=== PATIENT | female | born 1970 | race Caucasian/White ===

== ENCOUNTER 2019-02-19 09:58 | Day surgery (SDC) | payer BC ==
[2019-02-18 11:55] VITALS: BMI 20.4
[~2019-02-19 09:58] MED LIST: ALBUTEROL NEB (CONC) 2.5 MG/0.5 ML INHALATION ONE; LIDOCAINE 2% (PF) 20 MG/ML 10 ML AMP INHALATION ONE; LIDOCAINE VISCOUS 300 MG/15 ML CUP MUCOUS MEM ONE; SODIUM CHLORIDE 0.9% 1,000 ML IV SCH
[2019-02-19] MEDS ORDERED: LACTATED RINGERS 1,000 ML IV ONE (10:25)
[2019-02-19] MEDS: fentaNYL (PF) 50 MCG/ML 2 ML AMP IVP ONE ×2 (11:23→11:34)
[2019-02-19] MEDS ORDERED: MIDAZOLAM 2 MG/2 ML VIAL IVP ONE ×2 (12:25→12:37)
[2019-02-19] MEDS ORDERED: MIDAZOLAM 2 MG/2 ML VIAL ONE (12:38)
[2019-02-19] MEDS ORDERED: fentaNYL (PF) 50 MCG/ML 2 ML AMP ONE (12:38)
[2019-02-19] MEDS ORDERED: SUCCINYLCHOLINE CHLORIDE 100 MG/5 ML SYR IV ONE (12:38)
[2019-02-19] MEDS ORDERED: PROPOFOL 10 MG/ML 20 ML VIAL IV ONE (12:38)
[2019-02-19] MEDS ORDERED: LIDOCAINE 1% INJ 10MG/ML (20 ML MDV) ONE (12:38)
[2019-02-19] MEDS ORDERED: ONDANSETRON 4 MG/2 ML VIAL ONE (12:38)
[2019-02-19] MEDS ORDERED: DEXAMETHASONE SOD PHOS (MDV) 100 MG/10 ML VIAL ONE (12:38)
[2019-02-19 13:48] VITALS: RESP 16; TEMP 97
--- NOTE | 2019-02-19 14:38 | XR ---
EXAMINATION TYPE: XR chest 1V portable DATE OF EXAM: 02/19/2019 COMPARISON: CT chest same date HISTORY: Status post bronchoscopy with biopsies TECHNIQUE: Single frontal view of the chest is obtained. FINDINGS: There is no evident pneumothorax or sizable effusion. Patchy increased density present in the right upper lobe is noted, bilateral apical irregularity, nodularity is present. IMPRESSION: No evident complication status post bronchoscopy.
[2019-02-19 15:09] VITALS: BP 127/79; PULSE 106
--- NOTE | 2019-02-19 15:30 | CT ---
EXAMINATION TYPE: CT Chest miguel Ordoñez Protocol DATE OF EXAM: 02/19/2019 COMPARISON: None HISTORY: Presurgical navigational bronchoscopy CT DLP: 597 mGycm Automated exposure control for dose reduction was used. FINDINGS: Axial images were obtained at 5 mm thick sections for computer navigation. There is a spiculated mass at the left apex measuring 1.0 x 1.6 cm in size. There is an area of a bul la adjacent to a small nodule measuring 0.7 cm transverse. Series 6 image 19. There is a spiculated m ass in the posterior medial right upper lobe measuring 1.9 x 1.3 cm. Series 6 image 22. Some punctate increased densities in the posterior lateral right upper lobe extending to the periphery could be so me scarring or metastatic disease. The ascending thoracic aorta at the level the main pulmonary artery is 3.0 cm patent main pulmonary b ifurcation is 2.2 cm. Coronary artery calcification is present. Limited CT sections are obtained through the upper abdomen which are unremarkable. IMPRESSION: CT FOR COMPUTER GUIDANCE. 2. BILATERAL UPPER LUNG FIELD SPICULATED MASSES ARE PRESENT DELINEATED ABOVE. SOME ADDITIONAL SMALLER PUNCTATE DENSITIES ARE PRESENT.
--- NOTE | 2019-02-19 17:25 | P.PCN ---
Date of Procedure: 02/19/19 Preoperative Diagnosis: bilateral upper lobe masses,consider lung cancer Postoperative Diagnosis: bilateral upper lobe mass, consider lung cancer Procedure(s) Performed: medications bronchoscopy, right upper lobe transbronchial biopsy, right upper lobe bronchoalveolar lavage Anesthesia: ANITHAA Surgeon: Mirella Najera Estimated Blood Loss (ml): 0 Pathology: other Condition: stable Disposition: same day Operative Findings: This is a 48-year-old female patient was referred to us for lung mass. The patient had a CAT scan of the chest and the patient was found to have a 1.9 x 1.3 cm right upper lobe mass and metastatic 8 the lesion the left apex measuring 1 x 1.6 cm in size. For that reason, the patient was brought into the hospital to undergo navigational bronchoscopy for tissue diagnosis. This procedure was done and operating room. A consent was signed. A timeout was obtained. A CAT scan of the chest was obtained for mapping the lung masses. Appropriate VPADS was applied to the patient's chest. Following that the patient was brought into the operating room and with the help of anesthesia the patient was intubated and placed on a mechanical ventilator. The procedure was done under general anesthesia. The patient was intubated by a #8 orotracheal tube by anesthesia. The preoperative CAT scan of the chest was reviewed. Appropriate mapping was done and the target lesions in the right upper lobe and the left upper lobe were mapped and all of these information was transported to a USB following that uploaded into the [employer] system. While the patient being adequately oxygenated and ventilated, and had after was attached and orotracheal tube and the flexible bronchoscope was easily passed down the ET tube into the lower trachea. The sabrina was identified. A quick airway inspection was done and the visualized airways included bilateral mainstem bronchi, right upper lobe bronchus, bronchus intermedius, right middle lobe bronchus, right lower lobe bronchus, left upper lobe bronchus, left lower lobe bronchus and its various segments and subsegments. All of these airways were patent and within normal limits. Following that, appropriate calibration was done using to reference points and these included the main sabrina and the secondary sabrina and the right upper lobe. Following that, using navigational guidance, the bronchoscope was moved to the posterior segment of the right upper lobe and transbronchial biopsies of the right upper lobe lesion was done. Multiple biopsies were obtained. A lavage of the right upper lobe was also done where total of 80 mL of fluid was infused and 20 mL's was suctioned back. I also attempted to biopsy the left upper lobe lesion on the navigational guidance. This was not possible as the apical lesion on the left was not accessible through any of the airways in the apical posterior segment in the left upper lobe. After completing the procedure, the bronchoscope was removed. The ET tube was removed and the patient was extubated and the patient was transferred to recovery in stable condition. No bedside complications. The patient remains hemodynamically stable throughout the procedure. Chest x-rays to follow. The patient will be discharged once cleared by anesthesia to be followed up with us in the office.
[2019-02-19 20:25] LABS: Appearance,BF Bloody; RBC, Body Fluid 7540 /uL
[2019-02-19 20:26] LABS: Nucleated Cells, Body Fluid 78 /uL
[2019-02-19 20:29] LABS: Mononuclear WBC,Body Fluid 90 %; Polynuclear WBC,Body Fluid 10 %; Total Cells Counted,Body Fluid 100
== END 2019-02-19 15:15 | disposition home or self-care (01) ==
LOC: ORWHC2ENDO 09:58
PROVIDERS: ATTEND Internal Medicine Critical Care Medicine
DX: J98.4 Other disorders of lung (principal); L40.9 Psoriasis, unspecified; L40.50 Arthropathic psoriasis, unspecified; K21.9 Gastro-esophageal reflux disease without esophagitis; G89.29 Other chronic pain; M89.9 Disorder of bone, unspecified; I10 Essential (primary) hypertension; F41.9 Anxiety disorder, unspecified; E03.9 Hypothyroidism, unspecified; F17.210 Nicotine dependence, cigarettes, uncomplicated; Z79.1 Long term (current) use of non-steroidal anti-inflammatories (NSAID); Z79.899 Other long term (current) drug therapy
CPT/HCPCS: 88108; 88305; 89050; 88342; 88341; 87070; 87205; 71045; 71250; 31628; 31624; 31627; J2250; J2405; J2001; J3010; J1100; J0330; J2704; 31625

== ENCOUNTER → 2019-02-26 | Outpatient (CLI) | payer BC ==
--- NOTE | 2019-03-01 06:00 | PE ---
EXAMINATION TYPE: PET CT fusion skull to thigh DATE OF EXAM: 02/26/2019 COMPARISON: Outside chest CT February 11, 2019 HISTORY: Solitary pulmonary nodule, biopsy-proven cancer February 19, 2019 by bronchoscopy TECHNIQUE: Following the intravenous administration of 14.591 mCi of F-18 FDG, whole body images are performed from the skull base to the midthigh. Images are reviewed on the computer in the coronal, axial, and sagittal planes. Reconstructed rotating images are created on independent workstation and reviewed on the computer. A noncontrast CT is performed in conjunction with the PET scan. SCAN: Initial Scan FINDINGS: SKULL BASE AND NECK: No areas of suspicious hypermetabolic uptake. CHEST, MEDIASTINUM, AND HILAR REGION: There is spiculated left apical nodule redemonstrated measuring 1.5 x 1.3 cm axial image 59, max SUV is 3.18. There is some linear and thickened scarring in the right upper lobe on background chronic emphysemato us change, just below there is posterior nodularity measuring 1.6 x 1.5 cm axial image 76, max SUV i s 4.12. No additional areas of abnormal hypermetabolic uptake are seen. No suspicious adenopathy is noted. ABDOMEN AND PELVIS: No suspicious hypermetabolic uptake. No adrenal masses are present. OSSEOUS STRUCTURES: There is hypermetabolic destructive lesion involving the T9 vertebra with adjacen t soft tissue mass near axial image 103 with additional involvement in the T10 vertebra and inferior T8 endplate, max SUV at this level is 9.52. There is hypermetabolic lytic osseous lesion left L1 lamina, axial image 138, max SUV is 3.24. There is hypermetabolic sclerotic focus left sacrum axial image 192, max SUV is 4.86. OTHER CT: There is moderate to severe 3 vessel coronary artery calcification and/or stents, correlate clinically. Liver is diffusely low dense relative to spleen consistent with diffuse fatty infiltration. There is moderate calcified plaque of aorta extending into pelvic branch vessels. There is low lying fecal filled cecum into right pelvis. IMPRESSION: Bilateral suspicious upper lung pulmonary nodules with osseous metastatic disease as deta iled above.
== END | disposition home or self-care (01) ==
LOC: RADPETMAIN 16:01
PROVIDERS: ATTEND Internal Medicine
DX: R91.8 Other nonspecific abnormal finding of lung field (principal)
CPT/HCPCS: 78815; A9552

== ENCOUNTER → 2019-03-03 | Outpatient (CLI) | payer BC ==
--- NOTE | 2019-03-03 11:07 | MR ---
EXAMINATION TYPE: MR brain wo/w con DATE OF EXAM: 03/03/2019 COMPARISON: NONE HISTORY: Suspected lung cancer, initial staging study, rule out metastatic disease. Recent abnormal P ET/CT. TECHNIQUE: Multiplanar, multisequence images of the brain and brainstem is performed without and with IV contras t, utilizing 5.5 mL intravenous Gadavist . FINDINGS: Diffusion weighted images demonstrate no evidence of a recent infarct or other diffusion ab normality. There is no worrisome extra-axial fluid collection. There is mild ventricular and sulcal prominence. There are few scattered foci T2 hyperintensity throughout the white matter bilaterally, f or reference 4-5 small lesions are seen bilateral parietal occipital region axial image 35. Lesions a re nonspecific in appearance and distribution. Midline structures demonstrate normal morphology. The craniocervical junction appears within normal limits. Post contrast images demonstrate no abnormal enhancement. The dural venous sinuses appear pa tent. The visualized sinuses are clear and the globes are intact. IMPRESSION: No enhancing lesions identified to suggest metastatic disease to the brain. Background mi ld age-related diffuse cerebral atrophy and mild chronic small vessel ischemic change felt present.
== END | disposition home or self-care (01) ==
LOC: RADMRIMAIN 10:02
PROVIDERS: ATTEND Radiology Radiation Oncology
DX: G31.1 Senile degeneration of brain, not elsewhere classified (principal); I67.82 Cerebral ischemia; C34.12 Malignant neoplasm of upper lobe, left bronchus or lung
CPT/HCPCS: 70553; A9585

== ENCOUNTER 2019-03-10 10:54 | Day surgery (SDC) | payer BC ==
[2019-03-10] MEDS ORDERED: ALPRAZolam 0.5 MG TAB PO STA (11:15)
[2019-03-10 11:31] LABS: Mean Platelet Volume 7.3; Platelet Count 277 k/uL (150-450)
[2019-03-10 11:41] VITALS: TEMP 98
[2019-03-10 11:46] LABS: INR 0.9 (<1.2); Prothrombin Time 9.5 sec (9.0-12.0)
[2019-03-10] MEDS: HYDROmorphone 0.5 MG/0.5 ML SYRINGE IVP STA ×2 (12:01→12:12)
--- NOTE | 2019-03-10 12:51 | XR ---
EXAMINATION TYPE: XR chest 1V DATE OF EXAM: 03/10/2019 COMPARISON: Prior chest x-ray 02/19/2018 HISTORY: Status post thoracic biopsy, paraspinal mass TECHNIQUE: Single frontal view of the chest is obtained. FINDINGS: There is no pleural effusion or pneumothorax seen. Upper lobe airspace disease has improve d in the interval. The cardiac silhouette size is within normal limits. The osseous structures are intact, there is a spinal curvature. Patient's paraspinal mass is noted incidentally. IMPRESSION: No evident complication status post biopsy
--- NOTE | 2019-03-10 13:10 | CT ---
EXAMINATION TYPE: CT biopsy st back/flank [facility] fine-needle aspiration paraspinal mass DATE OF EXAM: 03/10/2019 HISTORY: Abnormal PET/CT, lytic bone lesions, paraspinal mass COMPARISON: CT 02/19/2018, MRI 02/11/2019, PET/CT 02/26/2019 Maximal barrier technique was utilized. The skin overlying a suitable path to the paraspinal lesion at approximately T10 was localized using CT and the overlying skin was prepped and draped. Lidocaine used for local anesthesia. A skin terrance made with a scalpel. Using CT guidance, access was gained t o the lesion with a 22-gauge needle coaxially through a 19-gauge guide. Aspirated specimen submitted to cytology. 3 passes were performed in all. Following the procedure no immediate complications. The patient is discharged in stable condition. Hemostasis achieved. IMPRESSION: SUCCESSFUL CT GUIDED BIOPSY of paraspinal mass as described. PATHOLOGY PENDING. THIS PROCEDURE WAS PERFORMED BY THE UNDERSIGNED.
[2019-03-10 13:29] VITALS: RESP 16
[2019-03-10 13:30] VITALS: BP 131/69; PULSE 94
== END 2019-03-10 13:15 | disposition home or self-care (01) ==
LOC: RADPROMAIN 10:54
PROVIDERS: ATTEND Internal Medicine
DX: C79.51 Secondary malignant neoplasm of bone (principal); K21.9 Gastro-esophageal reflux disease without esophagitis; R91.8 Other nonspecific abnormal finding of lung field; L40.50 Arthropathic psoriasis, unspecified; F41.9 Anxiety disorder, unspecified; G89.29 Other chronic pain; M54.9 Dorsalgia, unspecified; F17.210 Nicotine dependence, cigarettes, uncomplicated; Z79.1 Long term (current) use of non-steroidal anti-inflammatories (NSAID); Z79.899 Other long term (current) drug therapy
CPT/HCPCS: 88305; 88173; 85049; 85610; 88342; 88341; 36415; 71045; 10009; J1170; 21920; 77012

== ENCOUNTER 2019-04-14 17:43 | Inpatient (IN) | payer BC ==
[2019-04-14] MEDS ORDERED: SODIUM CHLORIDE 0.9% 1,000 ML IV STA (20:33)
[2019-04-14] MEDS ORDERED: MORPHINE SULFATE 4 MG/ML SYRINGE IV STA (20:33)
[2019-04-14] MEDS ORDERED: ONDANSETRON 4 MG/2 ML VIAL IVP STA (20:33)
--- NOTE | 2019-04-14 20:36 | ED ---
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 Patient has been nauseous and vomiting for the past day. States she has difficulty swallowing due to radiation to her back and has not b een eating much at home. States she has also had diarrhea for the past day. States she saw [employer] Aretha yesterday and was given fluids. States that she was called today and told she needs more fluids and her potassium is low so to come to ED. Denies any abdominal pain with this. Denies any fevers at home. Last received chemo one week ago. Patient has no other complaints at this time including shortness of breath, chest pain, abdominal pain, headache, or visual changes. (Milton Watkins) - Related Data Home Medications Medication Instructions Recorded Confirmed ALPRAZolam [Xanax] 0.25 mg PO DAILY PRN 02/18/19 04/14/19 Diltiazem HCl [Diltiazem 24Hr ER] 180 mg PO DAILY 02/18/19 04/14/19 Ibuprofen [Motrin] 800 mg PO TID PRN 02/18/19 04/14/19 Levothyroxine Sodium [Synthroid] 50 mcg PO DAILY 02/18/19 04/14/19 HYDROcodone/APAP 7.5-325MG [[place] 1 tab PO Q6H 03/02/19 04/14/19 7.5-325] Calcium Carbonate/Vitamin D3 2 tab PO DAILY 04/14/19 04/14/19 [Calcium 600-Vit D3 200 Tablet] Folic Acid 1 mg PO DAILY 04/14/19 04/14/19 fentaNYL 25MCG/HR PATCH [Duragesic 1 patch TRANSDERM Q72H 04/14/19 04/14/19 25MCG/HR] valACYclovir HCL [Valacyclovir] 1,000 mg PO Q12HR 04/14/19 04/14/19 Allergies Allergy/AdvReac Type Severity Reaction Status Date / Time No Known Allergies Allergy Verified 04/14/19 20:28 Review of Systems ROS Other: All systems not noted in ROS Statement are negative. <Milton Watkins - Last Filed: 04/14/19 23:36> ROS Other: All systems not noted in ROS Statement are negative. <Jcarlos Zaman - Last Filed: 04/15/19 06:52> ROS Statement: Those systems with pertinent positive or pertinent negative responses have been documented in the HPI. Past Medical History Past Medical History: Cancer Additional Past Medical History / Comment(s): adeno carcinoma, lung nodules, back pain, psoriatic arthritis History of Any Multi-Drug Resistant Organisms: None Reported Additional Past Surgical History / Comment(s): colonoscopy, ganglion cyst removed, bone marrow bx. Past Anesthesia/Blood Transfusion Reactions: No Reported Reaction Past Psychological History: Anxiety Smoking Status: Current every day smoker Past Alcohol Use History: None Reported Past Drug Use History: None Reported - Past Family History Mother Family Medical History: No Reported History <Milton Watkins P - Last Filed: 04/14/19 23:36> General Exam Limitations: no limitations General appearance: alert, in no apparent distress Head exam: Present: atraumatic, normocephalic, normal inspection Eye exam: Present: normal appearance, PERRL, EOMI. Absent: scleral icterus, conjunctival injection, periorbital swelling ENT exam: Present: normal exam, mucous membranes moist Neck exam: Present: normal inspection, full ROM. Absent: tenderness, meningismus, lymphadenopathy Respiratory exam: Present: normal lung sounds bilaterally. Absent: respiratory distress, wheezes, rales, rhonchi, stridor Cardiovascular Exam: Present: regular rate, normal rhythm, normal heart sounds. Absent: systolic murmur, diastolic murmur, rubs, gallop, clicks GI/Abdominal exam: Present: soft, normal bowel sounds. Absent: distended, tenderness, guarding, rebound, rigid Neurological exam: Present: alert, oriented X3, CN II-XII intact Psychiatric exam: Present: normal affect, normal mood <Milton Watkins P - Last Filed: 04/14/19 23:36> Course Vital Signs 04/14/19 04/14/19 04/14/19 18:03 21:30 22:10 Temperature 96.7 F L Pulse Rate 122 H Respiratory 18 Rate Blood Pressure 101/70 81/59 91/54 O2 Sat by Pulse 100 98 100 Oximetry 04/14/19 04/14/19 04/15/19 23:00 23:38 01:00 Temperature Pulse Rate 98 104 H 705 H Respiratory 16 Rate Blood Pressure 95/51 106/64 O2 Sat by Pulse 96 Oximetry 04/15/19 04/15/19 04/15/19 01:48 02:17 04:47 Temperature Pulse Rate 100 98 102 H Respiratory 18 16 18 Rate Blood Pressure 107/59 96/54 98/61 O2 Sat by Pulse 96 98 96 Oximetry EKG Findings - EKG Comments: EKG Findings:: NSR, ventricular rate 96, CA interval 178, QT prolongation with a QTC of 533. <Milton Watkins - Last Filed: 04/14/19 23:36> Medical Decision Making - Lab Data Result diagrams: 04/14/19 20:51 04/14/19 20:51 - EKG Data -: EKG Interpreted by Ak (and Dr Zaman) <Milton Watkins - Last Filed: 04/14/19 23:36> - Lab Data Result diagrams: 04/14/19 20:51 04/14/19 20:51 <Jcarlos Zaman - Last Filed: 04/15/19 06:52> - Medical Decision Making 49-year-old female with a primary adenocarcinoma of the lung with metastases to the bone presents for possible dehydration. Patient states that she has had nausea vomiting and diarrhea for one day. States that she has not been able to eat or drink much at home because she has difficulty swallowing due to radiation to her spine. On exam patient is well-appearing. Patient initially tachycardic with a pulse rate of 122 and a stable blood pressure of 101/70. Afebrile. CMP did reveal a potassium of 2.8 with a magnesium of 1.7. EKG did show evidence of prolonged QT which likely is secondary to hypokalemia. Patient started on IV potassium replacement as well as 2 g of magnesium. Phos Pending. No additional zofran will be ordered. Patient is neutropenic with a white blood cell count of 1. I do not have any previously blood cell counts and patient states that she is unsure of what they have been in the past but no they have been low. Patient did start him somewhat hypotensive around 90/50 after receiving a liter of fluids. Possibly secondary to morphine administration as well. She was then given another liter of fluids as well as ordering a lactic acid, blood cultures, and started on Zosyn due to concern for possible infection. Chest x-ray is negative. Urinalysis is pending, patient has tried to give a sample several times. At this time patient will be admitted for potassium replacement and monitoring of QT prolongation as well as neutropenia. (Milton Watkins) - Lab Data Lab Results 04/14/19 04/14/19 04/14/19 Range/Units 20:51 20:51 20:51 WBC 1.0 L* (3.8-10.6) k/uL RBC 3.40 L (3.80-5.40) m/uL Hgb 11.2 L (11.4-16.0) gm/dL Hct 32.9 L (34.0-46.0) % MCV 96.6 (80.0-100.0) fL MCH 32.9 (25.0-35.0) pg MCHC 34.0 (31.0-37.0) g/dL RDW 13.5 (11.5-15.5) % Plt Count 103 L D (150-450) k/uL Neutrophils % (Manual) 49 % Band Neutrophils % 1 % Lymphocytes % (Manual) 43 % Monocytes % (Manual) 7 % Neutrophils # (Manual) 0.50 L (1.3-7.7) k/uL Lymphocytes # (Manual) 0.43 L (1.0-4.8) k/uL Monocytes # (Manual) 0.07 (0-1.0) k/uL Nucleated RBCs 0 (0-0) /100 WBC Manual Slide Review Performed Sodium 133 L (137-145) mmol/L Potassium 2.8 L (3.5-5.1) mmol/L Chloride 98 (98-107) mmol/L Carbon Dioxide 23 (22-30) mmol/L Anion Gap 12 mmol/L BUN 15 (7-17) mg/dL Creatinine 0.82 (0.52-1.04) mg/dL Est GFR (CKD-EPI)AfAm >90 (>60 ml/min/1.73 sqM) Est GFR (CKD-EPI)NonAf 84 (>60 ml/min/1.73 sqM) Glucose 126 H (74-99) mg/dL Plasma Lactic Acid Jason (0.7-2.0) mmol/L Calcium 8.1 L (8.4-10.2) mg/dL Phosphorus 3.3 (2.5-4.5) mg/dL Magnesium 1.7 (1.6-2.3) mg/dL Total Bilirubin 1.0 (0.2-1.3) mg/dL AST 41 H (14-36) U/L ALT 48 (9-52) U/L Alkaline Phosphatase 177 H (38-126) U/L Total Protein 6.2 L (6.3-8.2) g/dL Albumin 3.4 L (3.5-5.0) g/dL Amylase 36 (30-110) U/L Lipase 22 L (23-300) U/L 04/14/19 Range/Units 20:51 WBC (3.8-10.6) k/uL RBC (3.80-5.40) m/uL Hgb (11.4-16.0) gm/dL Hct (34.0-46.0) % MCV (80.0-100.0) fL MCH (25.0-35.0) pg MCHC (31.0-37.0) g/dL RDW (11.5-15.5) % Plt Count (150-450) k/uL Neutrophils % (Manual) % Band Neutrophils % % Lymphocytes % (Manual) % Monocytes % (Manual) % Neutrophils # (Manual) (1.3-7.7) k/uL Lymphocytes # (Manual) (1.0-4.8) k/uL Monocytes # (Manual) (0-1.0) k/uL Nucleated RBCs (0-0) /100 WBC Manual Slide Review Sodium (137-145) mmol/L Potassium (3.5-5.1) mmol/L Chloride (98-107) mmol/L Carbon Dioxide (22-30) mmol/L Anion Gap mmol/L BUN (7-17) mg/dL Creatinine (0.52-1.04) mg/dL Est GFR (CKD-EPI)AfAm (>60 ml/min/1.73 sqM) Est GFR (CKD-EPI)NonAf (>60 ml/min/1.73 sqM) Glucose (74-99) mg/dL Plasma Lactic Acid Jason 1.0 (0.7-2.0) mmol/L Calcium (8.4-10.2) mg/dL Phosphorus (2.5-4.5) mg/dL Magnesium (1.6-2.3) mg/dL Total Bilirubin (0.2-1.3) mg/dL AST (14-36) U/L ALT (9-52) U/L Alkaline Phosphatase (38-126) U/L Total Protein (6.3-8.2) g/dL Albumin (3.5-5.0) g/dL Amylase (30-110) U/L Lipase (23-300) U/L Disposition Is patient prescribed a controlled substance at d/c from ED?: No Time of Disposition: 23:34 <Milton Watkins P - Last Filed: 04/14/19 23:36> Is patient prescribed a controlled substance at d/c from ED?: No <Jcarlos Zaman - Last Filed: 04/15/19 06:52> Clinical Impression: Prolonged QT interval, Hypokalemia, Neutropenia, Lung cancer metastatic to bone, UTI (urinary tract infection) Disposition: ADMITTED IP TO THIS HOSP Condition: Serious
[2019-04-14 21:11] LABS: ALT 48 U/L (9-52); AST 41 U/L (14-36); Albumin 3.4 g/dL (3.5-5.0); Alkaline Phosphatase 177 U/L (38-126); Amylase 36 U/L (30-110); Anion Gap 12 mmol/L; Blood Urea Nitrogen 15 mg/dL (7-17); Calcium 8.1 mg/dL (8.4-10.2); Carbon Dioxide 23 mmol/L (22-30); Chloride 98 mmol/L (98-107); Glucose 126 mg/dL (74-99); HCT 32.9 % (34.0-46.0); HGB 11.2 gm/dL (11.4-16.0); Lipase 22 U/L (23-300); MCH 32.9 pg (25.0-35.0); MCV 96.6 fL (80.0-100.0); Magnesium 1.7 mg/dL (1.6-2.3); Mean Platelet Volume 6.6; Potassium 2.8 mmol/L (3.5-5.1); RDW 13.5 % (11.5-15.5); Sodium 133 mmol/L (137-145); Total Protein 6.2 g/dL (6.3-8.2)
--- NOTE | 2019-04-14 21:41 | XR ---
EXAMINATION: XR chest 2V DATE AND TIME: 04/14/2019 9:21 PM CLINICAL INDICATION: PHH; abdominal pain TECHNIQUE: Departmental protocol COMPARISON: 03/10/2019 FINDINGS: The lungs are negative for acute processes. The pleural spaces are negative. The cardiac silhouette is not enlarged. Pectus excavatum noted. The skeletal structures and soft tissues are negative for acute findings. IMPRESSION: No acute process.
[2019-04-14] MEDS ORDERED: Potassium Replacement Protocol 1 EACH MISC MISCELLANE PRN (21:46)
[2019-04-14 21:54] LABS: Neutrophils % (M) 49 %
[2019-04-14 21:57] LABS: Band Neutrophils % 1 %; Lymphocytes # (M) 0.43 k/uL (1.0-4.8); Monocytes # (M) 0.07 k/uL (0-1.0); Nucleated Red Blood Cells 0 /100 WBC (0-0); Total Cells Counted 100
[2019-04-14] MEDS ORDERED: SODIUM CHLORIDE 0.9% 500 ML 500 ML IV STA ×2 (22:40→22:52)
[2019-04-14] MEDS: POTASSIUM CHLORIDE 10 MEQ in WATER FOR INJECTION 1 100ML.BAG IVPB SCH (22:50)
[2019-04-14 23:06] LABS: Platelet Count 103 k/uL (150-450)
[2019-04-14] MEDS ORDERED: NALOXONE 0.4 MG/ML 1 ML VIAL IV PRN (23:23)
[2019-04-15] MEDS: MAGNESIUM SULFATE-D5W PMX 1 GM in DEXTROSE/WATER 1 100ML.BAG IVPB SCH ×4 (00:35→14:19)
[2019-04-15] MEDS: ALPRAZolam 0.25 MG TAB PO PRN ×2 (00:36→21:05)
[2019-04-15] MEDS: HYDROcodone/APAP 7.5-325MG 1 EACH TAB PO SCH ×4 (00:36→18:31)
[2019-04-15] MEDS: PIPERACILLIN-TAZOBACTAM 3.375 GM in SODIUM CHLORIDE 0.9% 100 ML IVPB SCH ×3 (00:38→16:19)
[2019-04-15] MEDS: POTASSIUM CHLORIDE 10 MEQ in WATER FOR INJECTION 1 100ML.BAG IVPB SCH ×5 (00:50→06:25)
[2019-04-15] MEDS: SODIUM CHLORIDE 0.9% 1,000 ML IV SCH ×3 (01:47→20:55)
[2019-04-15 03:55] LABS: Appearance,Urine Cloudy (Clear); Bacteria,Urine Occasional /hpf; Bilirubin,Urine Negative (Negative); Blood,Urine Negative (Negative); Color,Urine Yellow; Glucose,Urine (UA) Negative (Negative); Hyaline Casts,Urine 3 /lpf (0-2); Ketones,Urine 1+ (Negative); Leukocyte Esterase,Urine Small (Negative); Mucus,Urine Rare /hpf; Nitrite,Urine Positive (Negative); PH, Urine 5.5 (5.0-8.0); Protein,Urine Trace (Negative); RBC,Urine 1 /hpf (0-5); Specific Gravity,Urine 1.017 (1.001-1.035); Squamous Epithelial Cell,Urine 2 /hpf (0-4); Urobilinogen,Urine <2.0 mg/dL (<2.0); WBC,Urine 24 /hpf (0-5)
--- NOTE | 2019-04-15 07:32 | P.HPIM ---
History of Present Illness This is a pleasant 49 years old female with past medical history of hypothyroidism, hypertension recent lung adenocarcinoma cancer status post radiotherapy and chemotherapy, with metastasis to the spine, back pain and some right tic arthritis, everyday current smoker. She's follow up with Dr. zamora her oncologist. Presents with nausea vomiting and diarrhea and inability to eat or drink. Patient had last chemotherapy on 04/07/2019 as per patient, in 2 days patient started have some nausea and vomiting and sore throat associated with some trouble swallowing, she couldn't eat and drink only a little bit. She had recurrent back pain where the cancer is. She went to her oncology office about 2 days ago where she was treated with IV fluids however with persistence of her symptoms of nausea vomiting her doctor advised her to come to emergency room. Also patient is complaining of from dysuria but without increased frequency, and yesterday she started having loose bowel movement for about 2-3 times per day associated with abdominal cramps. Patient denies fever or chills. No chest pain or dyspnea. No coughing. But she has loss of appetite. On admission patient noticed to be hypotensive with blood pressure 96/54, but tachycardic around 100. She saturating 95 on room air. Appropriate. She has pancytopenia with W BCU 1.0, neutrophil count is around 500, hemoglobin 11.2 and platelets 103. She has mild hyponatremia with sodium 133, potassium 2.8. Creatinine 0.8. Lactic acid 1.0. AST 41 and ALT 48. Urinalysis is suspicious for infection. Chest x-ray showing no acute process as per Radiologist. EKG showing normal sinus rhythm at 96, with QTC prolongation at 533. In the hospital patient received pain management, IV fluids, and potassium replacement per protocol. Patient was started on Zosyn and pain management. Review of Systems CONSTITUTIONAL: No fever, no malaise, no fatigue. HEENT: No recent visual problems or hearing problems. Denied any sore throat. CARDIOVASCULAR: No orthopnea, PND, no palpitations, no syncope. PULMONARY: No shortness of breath, no cough, no hemoptysis. GASTROINTESTINAL: Normoactive bowel sounds. NEUROLOGICAL: No headaches, no weakness, no numbness. HEMATOLOGICAL: Denies any bleeding or petechiae. MUSCULOSKELETAL/RHEUMATOLOGICAL: Denies any joint pain, swelling, or any muscle pain. ENDOCRINE: Denies any polyuria or polydipsia. Past Medical History Past Medical History: Cancer Additional Past Medical History / Comment(s): adeno carcinoma, lung nodules, back pain, psoriatic arthritis History of Any Multi-Drug Resistant Organisms: None Reported Additional Past Surgical History / Comment(s): colonoscopy, ganglion cyst removed, bone marrow bx. Past Anesthesia/Blood Transfusion Reactions: No Reported Reaction Past Psychological History: Anxiety Smoking Status: Current every day smoker Past Alcohol Use History: None Reported Past Drug Use History: None Reported - Past Family History Mother Family Medical History: No Reported History Medications and Allergies Home Medications Medication Instructions Recorded Confirmed Type ALPRAZolam [Xanax] 0.25 mg PO DAILY PRN 02/18/19 04/14/19 History Diltiazem HCl [Diltiazem 24Hr ER] 180 mg PO DAILY 02/18/19 04/14/19 History Ibuprofen [Motrin] 800 mg PO TID PRN 02/18/19 04/14/19 History Levothyroxine Sodium [Synthroid] 50 mcg PO DAILY 02/18/19 04/14/19 History HYDROcodone/APAP 7.5-325MG [[place] 1 tab PO Q6H 03/02/19 04/14/19 History 7.5-325] Calcium Carbonate/Vitamin D3 2 tab PO DAILY 04/14/19 04/14/19 History [Calcium 600-Vit D3 200 Tablet] Folic Acid 1 mg PO DAILY 04/14/19 04/14/19 History fentaNYL 25MCG/HR PATCH [Duragesic 1 patch TRANSDERM Q72H 04/14/19 04/14/19 History 25MCG/HR] valACYclovir HCL [Valacyclovir] 1,000 mg PO Q12HR 04/14/19 04/14/19 History Allergies Allergy/AdvReac Type Severity Reaction Status Date / Time No Known Allergies Allergy Verified 04/14/19 20:28 Physical Exam Vitals: Vital Signs Temp Pulse Resp BP Pulse Ox 04/15/19 04:47 102 H 18 98/61 96 04/15/19 02:17 98 16 96/54 98 04/15/19 01:48 100 18 107/59 96 04/15/19 01:00 705 H 16 106/64 96 04/14/19 23:38 104 H 95/51 04/14/19 23:00 98 05/29/19 22:10 91/54 100 04/14/19 21:30 81/59 98 04/14/19 18:03 96.7 F L 122 H 18 101/70 100 Intake and Output 04/14/19 04/14/19 04/15/19 14:59 22:59 06:59 Other: Weight 48.081 kg GENERAL: The patient is alert and oriented x3, not in any acute distress. Well developed, well nourished. -HEENT: Pupils are round and equally reacting to light. EOMI. No scleral icterus. No conjunctival pallor. Normocephalic, atraumatic. No pharyngeal erythema. No thyromegaly. Dry mucous membranes CARDIOVASCULAR: S1 and S2 present. No murmurs, rubs, or gallops. PULMONARY: Chest is clear to auscultation, no wheezing or crackles. ABDOMEN: Soft, nontender, nondistended, normoactive bowel sounds. No palpable organomegaly. MUSCULOSKELETAL: No joint swelling or deformity. EXTREMITIES: No cyanosis, clubbing, or pedal edema. NEUROLOGICAL: Gross neurological examination did not reveal any focal deficits. SKIN: No rashes. Results CBC & Chem 7: 04/14/19 20:51 04/14/19 20:51 Labs: Abnormal Lab Results - Last 24 Hours (Table) 04/14/19 04/14/19 04/15/19 Range/Units 20:51 20:51 03:30 WBC 1.0 L* (3.8-10.6) k/uL RBC 3.40 L (3.80-5.40) m/uL Hgb 11.2 L (11.4-16.0) gm/dL Hct 32.9 L (34.0-46.0) % Plt Count 103 L D (150-450) k/uL Neutrophils # (Manual) 0.50 L (1.3-7.7) k/uL Lymphocytes # (Manual) 0.43 L (1.0-4.8) k/uL Sodium 133 L (137-145) mmol/L Potassium 2.8 L (3.5-5.1) mmol/L Glucose 126 H (74-99) mg/dL Calcium 8.1 L (8.4-10.2) mg/dL AST 41 H (14-36) U/L Alkaline Phosphatase 177 H (38-126) U/L Total Protein 6.2 L (6.3-8.2) g/dL Albumin 3.4 L (3.5-5.0) g/dL Lipase 22 L (23-300) U/L Urine Appearance Cloudy H (Clear) Urine Protein Trace H (Negative) Urine Ketones 1+ H (Negative) Urine Nitrite Positive H (Negative) Ur Leukocyte Esterase Small H (Negative) Urine WBC 24 H (0-5) /hpf Urine Bacteria Occasional H (None) /hpf Hyaline Casts 3 H (0-2) /lpf Urine Mucus Rare H (None) /hpf Assessment and Plan Assessment: Acute urinary tract infection Pancytopenia, related to her recent chemotherapy. Recurrent nausea vomiting, with diarrhea. Most likely reactive gastroenteritis. Hypokalemia with QTC prolongation Dehydration Sore throat present on admission Metastatic adenocarcinoma of the lung, status post radiotherapy History of sciatica nephritis Nicotine dependence Plan: This is a pleasant 49 years old female who presents with a tract infection. Of her lung cancer, And QT prolongation. Patient will be admitted to the cardiac unit. Continue with IV fluids, antibiotics. Follow-up blood and urine culture. Call cardiology consult, oncology team to evaluate the patient. Check influenza, C. diff and stool, Labs and medication were reviewed.. Continue same treatment. Continue with symptomatic treatment. Resume home medication. Monitor lytes and vitals. DVT and GI prophylaxis. Further recommendations of t kristin clinical course of the patient DVT prophylaxis: Subcutaneous heparin GI Prophylaxis: Pepcid PT/OT: Pending Prognosis is guarded
[2019-04-15 07:44] LABS: Anion Gap 10 mmol/L; Blood Urea Nitrogen 8 mg/dL (7-17); Carbon Dioxide 20 mmol/L (22-30); Chloride 104 mmol/L (98-107); Glucose 96 mg/dL (74-99); Sodium 134 mmol/L (137-145)
[2019-04-15] MEDS: FOLIC ACID 1 MG TAB PO SCH (09:03)
[2019-04-15] MEDS: MORPHINE SULFATE 4 MG/ML SYRINGE IVP PRN ×3 (10:33→21:02)
--- NOTE | 2019-04-15 11:04 | P.CRDCN ---
History of Present Illness Consult date: 04/15/19 Requesting physician: Ger Last Reason for Consult (text): Prolonged QT Chief complaint: Nausea, vomiting and diarrhea History of present illness: This is a pleasant 49-year-old female with past medical history significant for hypothyroidism, hypertension, recent lung adenocarcinoma cancer status post radiotherapy and chemotherapy with metastases to the spine,, positive nicotine dependence although she states she's cut down smoking significantly. She has been having episodes of nausea vomiting and diarrhea, went to her oncology office and was given IV fluids, subsequent to that she continue to have episodes of diarrhea and vomiting and was not able to eat. She came to the emergency room for further evaluation and treatment. She continues here to have frequent diarrhea stools. Chest x-ray did not reveal any acute process. Blood pressure 110/60 with a heart rate of 100-110, sinus tachycardia, 99% on room air. Her EKG shows normal sinus rhythm with a prolonged QT m easuring 533 corrected. White blood cell count 1.0, hemoglobin 11.2, platelet count 103. Sodium 133, potassium 2.8 on admission, 3.0 this morning. Chloride is 104, CO2 20, BUN 8 and creatinine 0.4. Magnesium 1.7. At the time of my examination this morning, patient is complaining of significant amount of back pain and abdominal cramping. She denies any chest discomfort, no difficulty in breathing, no palpitations. Cardiology consultation was requested because of the prolonged QT Past Medical History Past Medical History: Cancer, GERD/Reflux, Hypertension, Thyroid Disorder Additional Past Medical History / Comment(s): Adenoma lung cancer with mets to thoracic spine-received 1st chemo 04/07/19 and is undergoing radiation treatments to back, psoriatic arthritis, past back pain, hypothyroid. History of Any Multi-Drug Resistant Organisms: None Reported Additional Past Surgical History / Comment(s): 02/19/19 Bronchoscopy/BAL, bx, bone marrow biopsy, colonoscopy, L wrist ganglion cyst removed, colonoscopy Past Anesthesia/Blood Transfusion Reactions: No Reported Reaction Smoking Status: Current every day smoker - Past Family History Mother Family Medical History: Hypertension, Thyroid Disorder Additional Family Medical History / Comment(s): Hypothyroid Father Family Medical History: No Reported History Additional Family Medical History / Comment(s): Father is healthy Medications and Allergies Home Medications Medication Instructions Recorded Confirmed Type ALPRAZolam [Xanax] 0.25 mg PO DAILY PRN 02/18/19 04/14/19 History Diltiazem HCl [Diltiazem 24Hr ER] 180 mg PO DAILY 02/18/19 04/14/19 History Ibuprofen [Motrin] 800 mg PO TID PRN 02/18/19 04/14/19 History Levothyroxine Sodium [Synthroid] 50 mcg PO DAILY 02/18/19 04/14/19 History HYDROcodone/APAP 7.5-325MG [[place] 1 tab PO Q6H 03/02/19 04/14/19 History 7.5-325] Calcium Carbonate/Vitamin D3 2 tab PO DAILY 04/14/19 04/14/19 History [Calcium 600-Vit D3 200 Tablet] Folic Acid 1 mg PO DAILY 04/14/19 04/14/19 History fentaNYL 25MCG/HR PATCH [Duragesic 1 patch TRANSDERM Q72H 04/14/19 04/14/19 History 25MCG/HR] valACYclovir HCL [Valacyclovir] 1,000 mg PO Q12HR 04/14/19 04/14/19 History Allergies Allergy/AdvReac Type Severity Reaction Status Date / Time No Known Allergies Allergy Verified 04/14/19 20:28 Physical Exam Vitals: Vital Signs Temp Pulse Pulse Resp BP BP Pulse Ox 04/15/19 08:30 98 F 110 H 20 110/67 99 04/15/19 08:00 18 98/61 97 04/15/19 04:47 102 H 18 98/61 96 04/15/19 02:17 98 16 96/54 98 04/15/19 01:48 100 18 107/59 96 04/15/19 01:00 705 H 16 106/64 96 04/14/19 23:38 104 H 95/51 04/14/19 23:00 98 04/14/19 22:10 91/54 100 04/14/19 21:30 81/59 98 04/14/19 18:03 96.7 F L 122 H 18 101/70 100 Intake and Output 04/14/19 04/15/19 04/15/19 22:59 06:59 14:59 Intake Total 240 Balance 240 Intake: Oral 240 Other: # Bowel Movements 1 Weight 48.081 kg PHYSICAL EXAMINATION: GENERAL: 49-year-old female in no acute distress at the time of my examination HEENT: Head is atraumatic, normocephalic. Pupils equal, round. Sclera anicteric. Conjunctiva are clear. Mucous membranes of the mouth are moist. Neck is supple. There is no elevated jugular venous pressure. No carotid bruit is heard. HEART EXAMINATION: Heart S1, S2 normal. No murmur or gallop heard. CHEST EXAMINATION: Lungs reveal fine crackles bilaterally to the bases. ABDOMEN: Soft, nontender. Bowel sounds are heard. No organomegaly noted. Positive abdominal cramping EXTREMITIES: 2+ peripheral pulses with no evidence of peripheral edema and no calf tenderness noted. Positive lower back pain NEUROLOGIC patient is awake, alert and oriented X3. . Results 04/14/19 20:51 04/15/19 07:06 Cardiac Enzymes 04/14/19 Range/Units 20:51 AST 41 H (14-36) U/L CBC 04/14/19 Range/Units 20:51 WBC 1.0 L* (3.8-10.6) k/uL RBC 3.40 L (3.80-5.40) m/uL Hgb 11.2 L (11.4-16.0) gm/dL Hct 32.9 L (34.0-46.0) % Plt Count 103 L D (150-450) k/uL Comprehensive Metabolic Panel 04/14/19 04/15/19 Range/Units 20:51 07:06 Sodium 133 L 134 L (137-145) mmol/L Potassium 2.8 L 3.0 L (3.5-5.1) mmol/L Chloride 98 104 (98-107) mmol/L Carbon Dioxide 23 20 L (22-30) mmol/L BUN 15 8 (7-17) mg/dL Creatinine 0.82 0.42 L (0.52-1.04) mg/dL Glucose 126 H 96 (74-99) mg/dL Calcium 8.1 L 7.0 L (8.4-10.2) mg/dL AST 41 H (14-36) U/L ALT 48 (9-52) U/L Alkaline Phosphatase 177 H (38-126) U/L Total Protein 6.2 L (6.3-8.2) g/dL Albumin 3.4 L (3.5-5.0) g/dL Current Medications Generic Name Dose Route Start Last Admin Trade Name Freq PRN Reason Stop Dose Admin Hydrocodone Bitart/Acetaminophen 1 each 04/14/19 23:45 04/15/19 08:33 [place] 7.5-325 PO 1 each Q6H GUANAKO Administration Alprazolam 0.25 mg 04/15/19 00:10 04/15/19 00:36 Xanax PO 0.25 mg DAILY PRN Administration Anxiety Calcium Carbonate 1 each 04/15/19 09:00 [place] 500+D PO DAILY GUANAKO Fentanyl 1 patch 04/17/19 09:00 Duragesic 25mcg/Hr Patch TRANSDERM Q72H GUANAKO Folic Acid 1 mg 04/15/19 09:00 04/15/19 09:03 Folic Acid PO 1 mg DAILY GUANAKO Administration Piperacillin Sod/Tazobactam 100 mls @ 25 mls/hr 04/15/19 00:00 04/15/19 09:03 Sod 3.375 gm/ Sodium Chloride IVPB 25 mls/hr Q8HR GUANAKO Administration Sodium Chloride 1,000 mls @ 120 mls/hr 04/14/19 23:30 04/15/19 01:47 Saline 0.9% IV 120 mls/hr .Q8H20M GUANAKO Administration Levothyroxine Sodium 50 mcg 04/15/19 09:00 Synthroid PO DAILY@0630 [facility] Miscellaneous Information 1 each 04/14/19 21:46 Potassium Per Protocol MISCELLANE DAILY PRN Per Protocol Protocol Morphine Sulfate 4 mg 04/15/19 10:02 04/15/19 10:33 Morphine Sulfate (Inj) IVP 4 mg Q4HR PRN Administration Pain Naloxone HCl 0.2 mg 04/14/19 23:23 Narcan IV Q2M PRN Opioid Reversal Intake and Output 04/14/19 04/15/19 04/15/19 22:59 06:59 14:59 Intake Total 240 Balance 240 Intake: Oral 240 Other: # Bowel Movements 1 Weight 48.081 kg 04/14/19 20:51 04/15/19 07:06 EKG Interpretations (text) EKG shows a normal sinus rhythm with a prolonged QT measuring at 533 corrected. Assessment and Plan Plan: Assessment and plan #1 symptoms of frequent nausea vomiting and diarrhea with subsequent hypokalemia, being replaced. #2 prolonged QT, likely secondary to hypokalemia #3 metastatic adenocarcinoma of the lung, metastases to the spine #4 nicotine dependence #5 hypertension #6 hypothyroidism Plan We will continue to replace the potassium, we will also give the patient magnesium this morning. Obtain echocardiogram with Doppler study and repeat EKG in the morning. DNP note has been reviewed, I agree with a documented findings and plan of care. Patient was seen and examined.
[2019-04-15 12:34] LABS: Glucose,Whole Blood 113 mg/dL (75-99)
[2019-04-15] MEDS: CALCIUM CARB-VIT D 500MG-200UN 1 EACH TAB PO SCH (13:09)
[2019-04-15] MEDS: MAG HYDROX/AL HYDROX/SIMETH 30 ML, LIDOCAINE VISCOUS 30 ML, diphenhydrAMINE ELIXIR 75 M... PO SCH ×12 (13:09→20:56)
[2019-04-15] MEDS: LEVOTHYROXINE 50 MCG TAB PO SCH (13:09)
[2019-04-15] MEDS: FILGRASTIM-SNDZ 300 MCG/0.5 ML SYRINGE SQ SCH (14:32)
[2019-04-15] MEDS ORDERED: Potassium Replacement Protocol 1 EACH MISC MISCELLANE PRN (16:13)
[2019-04-15] MEDS: POTASSIUM CHLORIDE ER 20 MEQ TAB.ER PO SCH ×3 (16:26→22:47)
--- NOTE | 2019-04-15 18:41 | P.CONS ---
History of Present Illness - Reason for Consult Consult date: 04/15/19 metastatic adenocarcinoma Requesting physician: Milton Watkins - Chief Complaint hypokalemia, abnormal EKG - History of Present Illness Pt is a very pleasant female pt of Dr. Maher who presented to her PCP Dr. Carmen Carcamo with c/o progressive mid back pain X 3-4 months, treated with analgesics and anti-inflamatories. CT/MRI performed after she failed to im prove, found destructive lesion at T9 with soft tissue component, a RUL, NITHYA nodules. Dr. Najera performed diagnostic bronchscopy that was negative. CT- Guided Bx on 03/10/19 revealed metastatic adenocarcinoma consistent with lung primary. Staging PET revealed both upper lobes lesions, T9 lesion, a L1 and sacral lesions as avid. Dr. Murillo provided palliative XRT to the painful T9 tumor which is completed, she had her 1st cycle of carbo/alimta/keytruda/zometa on 04/07. Patient was seen in the office 2 days ago for follow up, she had hydration and was treated for persistent nausea and diarrhea. Her mouth had been sore. Despite interventions patient's symptoms persisted and progressed. She was not eating due to mouth irritation, continued vomiting despite anti- emetics, persistent diarrhea not responding to treatment. She was contacted by our office last evening to report a low potassium. She was directed to the emergency department. On arrival she had an EKG revealing QT prolongation, labs showing hypercalcemia. She was seen by cardiology with plans to do an echo and replace the potassium. When I saw patient in the emergency department she denied fever, chills, her mouth and throat continue to be terribly sore, nausea is persistent, denies pleuritic type chest pain, difficulty breathing, her abdomen is cramping from all of the diarrhea, she denies bloody or mucus stools, no swelling, bleeding. Review of Systems 14 point review systems is negative except as stated in HPI Past Medical History Past Medical History: Cancer, GERD/Reflux, Hypertension, Thyroid Disorder Additional Past Medical History / Comment(s): Adenoma lung cancer with mets to thoracic spine-received 1st chemo 04/07/19 and is undergoing radiation treatments to back, psoriatic arthritis, past back pain, hypothyroid. History of Any Multi-Drug Resistant Organisms: None Reported Additional Past Surgical History / Comment(s): 02/19/19 Bronchoscopy/BAL, bx, bone marrow biopsy, colonoscopy, L wrist ganglion cyst removed, colonoscopy Past Anesthesia/Blood Transfusion Reactions: No Reported Reaction Past Psychological History: Anxiety Smoking Status: Current every day smoker (75year pack history) Past Alcohol Use History: None Reported Past Drug Use History: None Reported - Past Family History Mother Family Medical History: Hypertension, Thyroid Disorder Additional Family Medical History / Comment(s): Hypothyroid Father Family Medical History: No Reported History Additional Family Medical History / Comment(s): Father is healthy Medications and Allergies Home Medications Medication Instructions Recorded Confirmed Type ALPRAZolam [Xanax] 0.25 mg PO DAILY PRN 02/18/19 04/14/19 History Diltiazem HCl [Diltiazem 24Hr ER] 180 mg PO DAILY 02/18/19 04/14/19 History Ibuprofen [Motrin] 800 mg PO TID PRN 02/18/19 04/14/19 History Levothyroxine Sodium [Synthroid] 50 mcg PO DAILY 02/18/19 04/14/19 History HYDROcodone/APAP 7.5-325MG [[place] 1 tab PO Q6H 03/02/19 04/14/19 History 7.5-325] Calcium Carbonate/Vitamin D3 2 tab PO DAILY 04/14/19 04/14/19 History [Calcium 600-Vit D3 200 Tablet] Folic Acid 1 mg PO DAILY 04/14/19 04/14/19 History fentaNYL 25MCG/HR PATCH [Duragesic 1 patch TRANSDERM Q72H 04/14/19 04/14/19 His tory 25MCG/HR] valACYclovir HCL [Valacyclovir] 1,000 mg PO Q12HR 04/14/19 04/14/19 History Famotidine 40 mg PO BID #60 tab 04/15/19 Rx Allergies Allergy/AdvReac Type Severity Reaction Status Date / Time No Known Allergies Allergy Verified 04/14/19 20:28 Physical Exam Vitals: Vital Signs Temp Pulse Pulse Resp BP BP Pulse Ox 04/15/19 16:00 99.0 F 114 H 18 114/72 94 L 04/15/19 13:00 115 H 20 04/15/19 12:00 100.9 F H 115 H 20 121/69 94 L 04/15/19 08:30 98 F 110 H 20 110/67 99 04/15/19 08:00 18 98/61 97 04/15/19 04:47 102 H 18 98/61 96 04/15/19 02:17 98 16 96/54 98 04/15/19 01:48 100 18 107/59 96 04/15/19 01:00 705 H 16 106/64 96 04/14/19 23:38 104 H 95/51 04/14/19 23:00 98 04/14/19 22:10 91/54 100 04/14/19 21:30 81/59 98 Intake and Output 04/15/19 04/15/19 04/15/19 06:59 14:59 22:59 Intake Total 240 4640 Output Total 300 Balance 240 4340 Intake: Intake, IV Titration 4400 Amount Magnesium Sulfate-D5w Pmx 200 1 gm In Dextrose/Water 1 100ml.bag @ 100 mls/hr IVPB Q1H [facility] Rx#: [id number] Piperacillin-Tazobactam 3 200 .375 gm In Sodium Chloride 0.9% 100 ml @ 25 mls/hr IVPB Q8HR [facility] Rx# :[id number] Sodium Chloride 0.9% 1, 1000 000 ml @ 120 mls/hr IV . Q8H20M [facility] Rx#:[id number] Sodium Chloride 0.9% 1, 3000 000 ml @ 999 mls/hr IV . Q1H1M STA Rx#:[id number] Oral 240 240 Output: Urine 300 Other: # Bowel Movements 1 - Constitutional General appearance: cooperative, no acute distress, thin - EENT Tongue is dry, dark red with patches of black, excoriation noted in multiple areas Eyes: anicteric sclerae, EOMI ENT: hearing grossly normal - Neck Neck: no lymphadenopathy - Respiratory Respiratory: bilateral: CTA, diminished - Cardiovascular tachycardia, regular rate auscultated Heart sounds: normal: S1, S2 Abnormal Heart Sounds: no systolic murmur, no diastolic murmur, no rub, no S3 Gallop, no S4 Gallop, no click, no other - Gastrointestinal General gastrointestinal: normal bowel sounds, soft, tenderness Localized gastrointestinal: tender: diffuse - Integumentary Integumentary: normal - Neurologic Neurologic: CNII-XII intact - Musculoskeletal Musculoskeletal: strength equal bilaterally - Psychiatric Psychiatric: A&O x's 3, appropriate affect, intact judgment & insight Results CBC & Chem 7: 04/14/19 20:51 04/15/19 14:48 Labs: Abnormal Lab Results - Last 24 Hours (Table) 04/14/19 04/14/19 04/15/19 Range/Units 20:51 20:51 03:30 WBC 1.0 L* (3.8-10.6) k/uL RBC 3.40 L (3.80-5.40) m/uL Hgb 11.2 L (11.4-16.0) gm/dL Hct 32.9 L (34.0-46.0) % Plt Count 103 L D (150-450) k/uL Neutrophils # (Manual) 0.50 L (1.3-7.7) k/uL Lymphocytes # (Manual) 0.43 L (1.0-4.8) k/uL Sodium 133 L (137-145) mmol/L Potassium 2.8 L (3.5-5.1) mmol/L Carbon Dioxide (22-30) mmol/L Creatinine (0.52-1.04) mg/dL Glucose 126 H (74-99) mg/dL POC Glucose (mg/dL) (75-99) mg/dL Calcium 8.1 L (8.4-10.2) mg/dL AST 41 H (14-36) U/L Alkaline Phosphatase 177 H (38-126) U/L Total Protein 6.2 L (6.3-8.2) g/dL Albumin 3.4 L (3.5-5.0) g/dL Lipase 22 L (23-300) U/L Urine Appearance Cloudy H (Clear) Urine Protein Trace H (Negative) Urine Ketones 1+ H (Negative) Urine Nitrite Positive H (Negative) Ur Leukocyte Esterase Small H (Negative) Urine WBC 24 H (0-5) /hpf Urine Bacteria Occasional H (None) /hpf Hyaline Casts 3 H (0-2) /lpf Urine Mucus Rare H (None) /hpf 04/15/19 04/15/19 04/15/19 Range/Units 07:06 12:08 14:48 WBC (3.8-10.6) k/uL RBC (3.80-5.40) m/uL Hgb (11.4-16.0) gm/dL Hct (34.0-46.0) % Plt Count (150-450) k/uL Neutrophils # (Manual) (1.3-7.7) k/uL Lymphocytes # (Manual) (1.0-4.8) k/uL Sodium 134 L (137-145) mmol/L Potassium 3.0 L 2.6 L* (3.5-5.1) mmol/L Carbon Dioxide 20 L (22-30) mmol/L Creatinine 0.42 L (0.52-1.04) mg/dL Glucose (74-99) mg/dL POC Glucose (mg/dL) 113 H (75-99) mg/dL Calcium 7.0 L (8.4-10.2) mg/dL AST (14-36) U/L Alkaline Phosphatase (38-126) U/L Total Protein (6.3-8.2) g/dL Albumin (3.5-5.0) g/dL Lipase (23-300) U/L Urine Appearance (Clear) Urine Protein (Negative) Urine Ketones (Negative) Urine Nitrite (Negative) Ur Leukocyte Esterase (Negative) Urine WBC (0-5) /hpf Urine Bacteria (None) /hpf Hyaline Casts (0-2) /lpf Urine Mucus (None) /hpf Chest x-ray: report reviewed Assessment and Plan (1) Prolonged QT interval Narrative/Plan: Cardiology consult report reviewed. Electrolytes being replaced, telemetry monitoring. Echo pending Current Visit: Yes Status: Acute Priority: High Code(s): R94.31 - ABNORMAL ELECTROCARDIOGRAM [ECG] [EKG] SNOMED Code(s): 926773026 (2) Pancytopenia due to antineoplastic chemotherapy Narrative/Plan: Patient is 7 days out from chemotherapy. Jadon will be in the next 2-5 days. Hemoglobin is adequate. Transfuse for hemoglobin of less than 7. Platelets adequate. Transfuse for platelet count of less than 10,000 WBC less than 1, absolute neutrophil count 500. MAXIMUM TEMPERATURE 100.9F. G- CSF has been initiated. Vega cultures and Stool culture pending. Prophylactic antibiotics are ordered Current Visit: Yes Status: Acute Priority: High Code(s): D61.810 - ANTINEOPLASTIC CHEMOTHERAPY INDUCED PANCYTOPENIA; T45.1X5A - ADVERSE EFFECT OF ANTINEOPLASTIC AND IMMUNOSUP DRUGS, INIT SNOMED Code(s): 065166874576135 (3) Mucositis (ulcerative) due to antineoplastic therapy Narrative/Plan: Salt and soda ordered for cleansing, cools solution ordered for topical treatment/symptom relief Current Visit: Yes Status: Acute Priority: High Code(s): K12.31 - ORAL MUCOSITIS (ULCERATIVE) DUE TO ANTINEOPLASTIC THERAPY SNOMED Code(s): 144756671 (4) Hypokalemia Narrative/Plan: Replacement protocol per Cardiology Current Visit: Yes Status: Acute Priority: High Code(s): E87.6 - HYPOKALEMIA SNOMED Code(s): 41317137 (5) Lung cancer metastatic to bone Narrative/Plan: Patient is status post first treatment with carbo, Alimta, keytruda, b isphosphonate therapy for bone metastases. It was discussed with patient that we need to better manage side effects and she has to be willing to be aggressive about managing her self care. She verbalized understanding. Will discuss with Primary Oncologist if pt may need a dose reduction. We will be adding GCSF to her next cycle to treatment Current Visit: Yes Status: Acute Priority: High Code(s): C34.90 - MALIGNANT NEOPLASM OF UNSP PART OF UNSP BRONCHUS OR LUNG; C79.51 - SECONDARY MAL IGNANT NEOPLASM OF BONE SNOMED Code(s): 03362750 (6) Anorexia Narrative/Plan: Marinol initiated Current Visit: Yes Status: Acute Priority: High Code(s): R63.0 - ANOREXIA SNOMED Code(s): 76882168 (7) Intractable nausea and vomiting Narrative/Plan: Antiemetic regimen adjusted. Current Visit: Yes Status: Acute Priority: High Code(s): R11.2 - NAUSEA WITH VOMITING, UNSPECIFIED SNOMED Code(s): 686429240 Plan: Have requested strict I's and O's. All bowel movements and stool consistency needs to be recorded. Side effects of immunotherapy can include diarrhea so, to ensure that we are treating the underlying cause correctly this will be monitored closely, further recommendations to follow
[2019-04-15] MEDS: DRONABINOL 2.5 MG CAP PO SCH (20:55)
[2019-04-15] MEDS: SALT AND SODA MOUTHWASH 1,000 ML PO SCH (20:57)
[2019-04-16] MEDS: POTASSIUM CHLORIDE ER 20 MEQ TAB.ER PO SCH ×4 (00:06→08:46)
[2019-04-16] MEDS: HYDROcodone/APAP 7.5-325MG 1 EACH TAB PO SCH ×5 (00:06→23:47)
[2019-04-16] MEDS: VANCOMYCIN ORAL SOLUTION 250 MG/5 ML BOTTLE PO SCH ×5 (00:19→23:47)
[2019-04-16] MEDS: CHERRY FLAVOR 60 ML BOTTLE PO SCH ×5 (00:21→23:47)
[2019-04-16] MEDS: PIPERACILLIN-TAZOBACTAM 3.375 GM in SODIUM CHLORIDE 0.9% 100 ML IVPB SCH ×2 (00:23→08:46)
[2019-04-16] MEDS: MAG HYDROX/AL HYDROX/SIMETH 30 ML, LIDOCAINE VISCOUS 30 ML, diphenhydrAMINE ELIXIR 75 M... PO SCH ×24 (00:25→23:50)
[2019-04-16] MEDS: SALT AND SODA MOUTHWASH 1,000 ML PO SCH ×6 (00:25→23:50)
[2019-04-16] MEDS: SODIUM CHLORIDE 0.9% 1,000 ML IV SCH ×4 (01:24→23:46)
[2019-04-16] MEDS: MORPHINE SULFATE 4 MG/ML SYRINGE IVP PRN ×3 (04:03→21:28)
[2019-04-16 05:25] LABS: HCT 26.4 % (34.0-46.0); MCH 32.3 pg (25.0-35.0); MCHC 33.1 g/dL (31.0-37.0); MCV 97.8 fL (80.0-100.0); Mean Platelet Volume 7.1; RDW 13.4 % (11.5-15.5)
[2019-04-16 05:38] LABS: Anion Gap 6 mmol/L; Blood Urea Nitrogen <2 mg/dL (7-17); Calcium 6.8 mg/dL (8.4-10.2); Carbon Dioxide 24 mmol/L (22-30); Chloride 101 mmol/L (98-107); Glucose 102 mg/dL (74-99); Magnesium 2.4 mg/dL (1.6-2.3); Potassium 3.5 mmol/L (3.5-5.1); Sodium 131 mmol/L (137-145)
[2019-04-16 05:49] LABS: HGB 8.7 gm/dL (11.4-16.0); WBC 0.9 k/uL (3.8-10.6)
[2019-04-16] MEDS: LEVOTHYROXINE 50 MCG TAB PO SCH (06:24)
[2019-04-16 06:36] LABS: Anisocytosis (M) Present
[2019-04-16 06:37] LABS: Large Platelets Present
[2019-04-16 06:39] LABS: Platelet Count 67 k/uL (150-450)
[2019-04-16] MEDS: DRONABINOL 2.5 MG CAP PO SCH ×2 (07:04→17:30)
--- NOTE | 2019-04-16 08:09 | XR ---
EXAMINATION TYPE: XR KUB portable DATE OF EXAM: 04/16/2019 8:00 AM CLINICAL HISTORY: Abdominal pain. History of metastatic cancer. TECHNIQUE: Single supine KUB image of the abdomen is obtained. COMPARISON: PET CT February 26, 2019. FINDINGS: Gas prominent small and large bowel loops are present. Gas is seen in nondistended stomach. New Multiple small rounded densities in pelvis could reflect bladder calculi? Visualized osseous str uctures are intact. IMPRESSION: Overall nonspecific bowel gas pattern. Small rounded densities pelvis new from recent PET CT of uncertain etiology?
[2019-04-16] MEDS: FOLIC ACID 1 MG TAB PO SCH (08:46)
[2019-04-16] MEDS: CALCIUM CARB-VIT D 500MG-200UN 1 EACH TAB PO SCH (08:48)
[2019-04-16] MEDS: FILGRASTIM-SNDZ 300 MCG/0.5 ML SYRINGE SQ SCH (09:19)
--- NOTE | 2019-04-16 13:12 | P.PN ---
Subjective Progress Note Date: 04/16/19 Principal diagnosis: Metastatic Non-Small Cell Lung Cancer Febriile Neutropenia Febrile T-Max 100.1 today, Stool Positive for C-diff. Objective - Vital Signs Vital signs: Vital Signs Temp 100.1 F H 04/16/19 12:00 Pulse 108 H 04/16/19 12:00 Resp 26 H 04/16/19 12:00 BP 111/68 04/16/19 12:00 Pulse Ox 97 04/16/19 04:00 Intake & Output 04/15/19 04/16/19 04/16/19 18:59 06:59 18:59 Intake Total 4880 1700 Output Total 300 Balance 4580 1700 Weight 55.8 kg Intake: IV 1200 Sodium Chloride 0.9% 1, 1200 000 ml @ 120 mls/hr IV . Q8H20M [facility] Rx#:[id number] Intake, IV Titration 4400 Amount Magnesium Sulfate-D5w Pmx 200 1 gm In Dextrose/Water 1 100ml.bag @ 100 mls/hr IVPB Q1H [facility] Rx#: [id number] Piperacillin-Tazobactam 3 200 .375 gm In Sodium Chloride 0.9% 100 ml @ 25 mls/hr IVPB Q8HR [facility] Rx# :[id number] Sodium Chloride 0.9% 1, 1000 000 ml @ 120 mls/hr IV . Q8H20M [facility] Rx#:[id number] Sodium Chloride 0.9% 1, 3000 000 ml @ 999 mls/hr IV . Q1H1M STA Rx#:[id number] Oral 480 500 Output: Urine 300 Other: # Voids 3 # Bowel Movements 1 3 - Exam Gen: Alert and Oriented Head: NCNT Neck: Supple Mouth: Mucocitis, Erythema, Cobblestoning, Scant thrush Lungs: Diminished Bilateral Lower Lobes, No increased effort Heart: Reg, Tachy Abdomen: b Soft, Tender Extremities: No edema Neuro: No motor or sensory deficitts - Labs CBC & Chem 7: 04/16/19 04:50 04/16/19 04:50 Labs: Abnormal Lab Results - Last 24 Hours (Table) 04/15/19 04/15/19 04/15/19 Range/Units 14:48 21:06 21:10 WBC (3.8-10.6) k/uL RBC (3.80-5.40) m/uL Hgb (11.4-16.0) gm/dL Hct (34.0-46.0) % Plt Count (150-450) k/uL Sodium (137-145) mmol/L Potassium 2.6 L* 2.6 L* (3.5-5.1) mmol/L BUN (7-17) mg/dL Creatinine (0.52-1.04) mg/dL Glucose (74-99) mg/dL Calcium (8.4-10.2) mg/dL Magnesium (1.6-2.3) mg/dL C. difficile (EIA) Intrp Positive A (Negative) 04/16/19 04/16/19 Range/Units 04:50 04:50 WBC 0.9 L* (3.8-10.6) k/uL RBC 2.70 L (3.80-5.40) m/uL Hgb 8.7 L D (11.4-16.0) gm/dL Hct 26.4 L (34.0-46.0) % Plt Count 67 L (150-450) k/uL Sodium 131 L (137-145) mmol/L Potassium (3.5-5.1) mmol/L BUN <2 L (7-17) mg/dL Creatinine 0.29 L (0.52-1.04) mg/dL Glucose 102 H (74-99) mg/dL Calcium 6.8 L (8.4-10.2) mg/dL Magnesium 2.4 H (1.6-2.3) mg/dL C. difficile (EIA) Intrp (Negative) Microbiology - Last 24 Hours (Table) 04/14/19 23:37 Blood Culture - Preliminary Blood No Growth after 24 hours Assessment and Plan (1) Hypokalemia Current Visit: Yes Status: Acute Priority: High Code(s): E87.6 - HYPOKALEMIA SNOMED Code(s): 78824754 (2) Intractable nausea and vomiting Current Visit: Yes Status: Acute Priority: High Code(s): R11.2 - NAUSEA WITH VOMITING, UNSPECIFIED SNOMED Code(s): 109148879 (3) Mucositis (ulcerative) due to antineoplastic therapy Current Visit: Yes Status: Acute Priority: High Code(s): K12.31 - ORAL MUCOSITIS (ULCERATIVE) DUE TO ANTINEOPLASTIC THERAPY SNOMED Code(s): 748568010 (4) Pancytopenia due to antineoplastic chemotherapy Current Visit: Yes Status: Acute Priority: High Code(s): D61.810 - ANTINEOPLASTIC CHEMOTHERAPY INDUCED PANCYTOPENIA; T45.1X5A - ADVERSE EFFECT OF ANTINEOPLASTIC AND IMMUNOSUP DRUGS, INIT SNOMED Code(s): 106967715114879 Plan: Assessment and Recommendations: Febrile Neutropenia: - Zarxio to continue - Treatment of c-Diff - ID Following [id number] Lung cancer with Metastatic Disease Bone: - Status POst Cycle one of Carboplatin, Almta, Keytruda, and Zometa - Will add Growth factor to cycle 2 C-Diff Colitis: - Infectious Disease - PO vancomycin Mucocytitis/Dysphagia: - Kools - Add Dexamethasone mouth rince and carafate - Slowly advance diet Hypokalemia: - Monitoring and Supp Prn Abnormal EKG: Q-T Prolongation: - Cardiology is following Pancytopenia secondary to chemotherapy: - Patient is 8days out from chemotherapy. Jadon will be in the next 2-5 days. - Hemoglobin is adequate. Transfuse for hemoglobin of less than 7. - Platelets adequate. Transfuse for platelet count of less than 10,000 - WBC less than 1, absolute neutrophil count 500. MAXIMUM TEMPERATURE 100.1F. - G-CSF will continue. - Antibiotics and treatment of Colitis. - Vega cultures neg thus far - Urine Culture Pending Aretha FRYE
[2019-04-16] MEDS: POTASSIUM CHLORIDE 20 MEQ in WATER FOR INJECTION 1 100ML.BAG IVPB SCH ×4 (13:13→21:53)
--- NOTE | 2019-04-16 13:31 | P.GSCN ---
<Gay Langley - Last Filed: 04/16/19 13:21> History of Present Illness Consult date: 04/16/19 Reason for Consult: abdominal pain Requesting physician: Clint E Sheet History of present illness: CHIEF COMPLAINT: abdominal pain HISTORY OF PRESENT ILLNESS: 49-year-old female with a history of non-small cell lung cancer with metastasis to the bone who completed her first chemotherapy on 04/07/2019. Patient states she was feeling better good the first couple days after chemo but then began having severe mouth sores and was unable to tolerate PO intake. She was seen outpatient at her oncology office Friday and given IV fluids. She states Friday she began having severe diffuse abdominal pain, nausea, vomiting, and diarrhea. Patient currently admitted to the ICU and examined at the bedside. She continues to report diffuse abdominal pain, worse on the right side. Denies further episodes of nausea or vomiting. She reports 8- 9 loose stools today. CDiff was positive. PAST MEDICAL HISTORY: See list. PAST SURGICAL HISTORY: See list. SOCIAL HISTORY: No illicit drug use. REVIEW OF SYSTEMS: CONSTITUTIONAL: Denies fever or chills. HEENT: Reports sores in mouth and dysphagia. Denies blurred vision, vision changes, or eye pain. Denies hemoptysis CARDIOVASCULAR: Denies chest pain or pressure. RESPIRATORY: No shortness of breath. GASTROINTESTINAL: Refer to HPI for pertinent findings HEMATOLOGIC: Denies bleeding disorders. GENITOURINARY: Denies any blood in urine. SKIN: Denies pruitis. Denies rash. PHYSICAL EXAM: VITAL SIGNS: Reviewed. GENERAL: Well-developed in no acute distress. HEENT: No sclera icterus. Extraocular movements grossly intact. Moist buccal mucosa with evidence of sores. Head is atraumatic, normocephalic. ABDOMEN: Soft. Distended. Tenderness to palpation of abdomen, more on right side. NEUROLOGIC: Alert and oriented. Cranial nerves II through XII grossly intact. IMAGING: KUB: Nonspecific bowel gas pattern ASSESSMENT: 1. Abdominal pain, nausea, vomiting 2. Clostridium difficile colitis 3. Dysphagia PLAN: 1. Continue antibiotics. ID following 2. Diet as tolerated Nurse practitioner note has been reviewed by physician. Signing provider agrees with the documented findings, assessment, and plan of care. Past Medical History Past Medical History: Cancer, GERD/Reflux, Hypertension, Thyroid Disorder Additional Past Medical History / Comment(s): Adenoma lung cancer with mets to thoracic spine-received 1st chemo 04/07/19 and is undergoing radiation treatments to back, psoriatic arthritis, past back pain, hypothyroid. History of Any Multi-Drug Resistant Organisms: None Reported Additional Past Surgical History / Comment(s): 02/19/19 Bronchoscopy/BAL, bx, bone marrow biopsy, colonoscopy, L wrist ganglion cyst removed, colonoscopy Past Anesthesia/Blood Transfusion Reactions: No Reported Reaction Past Psychological History: Anxiety Smoking Status: Current every day smoker (75year pack history) Past Alcohol Use History: None Reported Past Drug Use History: None Reported - Past Family History Mother Family Medical History: Hypertension, Thyroid Disorder Additional Family Medical History / Comment(s): Hypothyroid Father Family Medical History: No Reported History Additional Family Medical History / Comment(s): Father is healthy Medications and Allergies Home Medications Medication Instructions Recorded Confirmed Type ALPRAZolam [Xanax] 0.25 mg PO DAILY PRN 02/18/19 04/14/19 History Diltiazem HCl [Diltiazem 24Hr ER] 180 mg PO DAILY 02/18/19 04/14/19 History Ibuprofen [Motrin] 800 mg PO TID PRN 02/18/19 04/14/19 History Levothyroxine Sodium [Synthroid] 50 mcg PO DAILY 02/18/19 04/14/19 History HYDROcodone/APAP 7.5-325MG [Sebring 1 tab PO Q6H 03/02/19 04/14/19 History 7.5-325] Calcium Carbonate/Vitamin D3 2 tab PO DAILY 04/14/19 04/14/19 History [Calcium 600-Vit D3 200 Tablet] Folic Acid 1 mg PO DAILY 04/14/19 04/14/19 History fentaNYL 25MCG/HR PATCH [Duragesic 1 patch TRANSDERM Q72H 04/14/19 04/14/19 History 25MCG/HR] valACYclovir HCL [Valacyclovir] 1,000 mg PO Q12HR 04/14/19 04/14/19 History Famotidine 40 mg PO BID #60 tab 04/15/19 Rx Allergies Allergy/AdvReac Type Severity Reaction Status Date / Time No Known Allergies Allergy Verified 04/14/19 20:28 Surgical - Exam Vital Signs Temp Pulse Resp BP Pulse Ox 96.7 F L 122 H 18 101/70 100 05/29/19 18:03 04/14/19 18:03 04/14/19 18:03 04/14/19 18:03 04/14/19 18:03 Results - Labs 04/16/19 04:50 04/16/19 04:50 Abnormal Lab Results - Last 24 Hours (Table) 04/15/19 04/15/19 04/15/19 Range/Units 14:48 21:06 21:10 WBC (3.8-10.6) k/uL RBC (3.80-5.40) m/uL Hgb (11.4-16.0) gm/dL Hct (34.0-46.0) % Plt Count (150-450) k/uL Sodium (137-145) mmol/L Potassium 2.6 L* 2.6 L* (3.5-5.1) mmol/L BUN (7-17) mg/dL Creatinine (0.52-1.04) mg/dL Glucose (74-99) mg/dL Calcium (8.4-10.2) mg/dL Magnesium (1.6-2.3) mg/dL C. difficile (EIA) Intrp Positive A (Negative) 04/16/19 04/16/19 Range/Units 04:50 04:50 WBC 0.9 L* (3.8-10.6) k/uL RBC 2.70 L (3.80-5.40) m/uL Hgb 8.7 L D (11.4-16.0) gm/dL Hct 26.4 L (34.0-46.0) % Plt Count 67 L (150-450) k/uL Sodium 131 L (137-145) mmol/L Potassium (3.5-5.1) mmol/L BUN <2 L (7-17) mg/dL Creatinine 0.29 L (0.52-1.04) mg/dL Glucose 102 H (74-99) mg/dL Calcium 6.8 L (8.4-10.2) mg/dL Magnesium 2.4 H (1.6-2.3) mg/dL C. difficile (EIA) Intrp (Negative) Microbiology - Last 24 Hours (Table) 04/14/19 23:37 Blood Culture - Preliminary Blood No Growth after 24 hours Diabetes panel 04/15/19 04/15/19 04/16/19 Range/Units 14:48 21:06 04:50 Sodium 131 L (137-145) mmol/L Potassium 2.6 L* 2.6 L* 3.5 (3.5-5.1) mmol/L Chloride 101 (98-107) mmol/L Carbon Dioxide 24 (22-30) mmol/L BUN <2 L (7-17) mg/dL Creatinine 0.29 L (0.52-1.04) mg/dL Glucose 102 H (74-99) mg/dL Calcium 6.8 L (8.4-10.2) mg/dL Calcium panel 04/16/19 Range/Units 04:50 Calcium 6.8 L (8.4-10.2) mg/dL Pituitary panel 04/15/19 04/15/19 04/16/19 Range/Units 14:48 21:06 04:50 Sodium 131 L (137-145) mmol/L Potassium 2.6 L* 2.6 L* 3.5 (3.5-5.1) mmol/L Chloride 101 (98-107) mmol/L Carbon Dioxide 24 (22-30) mmol/L BUN <2 L (7-17) mg/dL Creatinine 0.29 L (0.52-1.04) mg/dL Glucose 102 H (74-99) mg/dL Calcium 6.8 L (8.4-10.2) mg/dL Adrenal panel 04/15/19 04/15/19 04/16/19 Range/Units 14:48 21:06 04:50 Sodium 131 L (137-145) mmol/L Potassium 2.6 L* 2.6 L* 3.5 (3.5-5.1) mmol/L Chloride 101 (98-107) mmol/L Carbon Dioxide 24 (22-30) mmol/L BUN <2 L (7-17) mg/dL Creatinine 0.29 L (0.52-1.04) mg/dL Glucose 102 H (74-99) mg/dL Calcium 6.8 L (8.4-10.2) mg/dL <Matt Lopez - Last Filed: 04/16/19 14:33> History of Present Illness History of present illness: As above. Patient with abdominal bloating and increasing abdominal pain. On exam she is tender in the right abdomen and epigastric region. Lactic acid today normal. Leukopenia noted on CBC. C. diff positive. Will check CT abdomen to evaluate for any hard signs of toxic colitis. Otherwise continue supportive care with antibiotics and fluid hydration. We'll discuss with both infectious disease and oncology after they have seen her today. Surgical - Exam Vital Signs Temp Pulse Resp BP Pulse Ox 96.7 F L 122 H 18 101/70 100 04/14/19 18:03 04/14/19 18:03 04/14/19 18:03 04/14/19 18:03 04/14/19 18:03 Results - Labs 04/16/19 04:50 04/16/19 04:50 Abnormal Lab Results - Last 24 Hours (Table) 04/15/19 04/15/19 04/15/19 Range/Units 14:48 21:06 21:10 WBC (3.8-10.6) k/uL RBC (3.80-5.40) m/uL Hgb (11.4-16.0) gm/dL Hct (34.0-46.0) % Plt Count (150-450) k/uL Sodium (137-145) mmol/L Potassium 2.6 L* 2.6 L* (3.5-5.1) mmol/L BUN (7-17) mg/dL Creatinine (0.52-1.04) mg/dL Glucose (74-99) mg/dL Calcium (8.4-10.2) mg/dL Magnesium (1.6-2.3) mg/dL C. difficile (EIA) Intrp Positive A (Negative) 04/16/19 04/16/19 Range/Units 04:50 04:50 WBC 0.9 L* (3.8-10.6) k/uL RBC 2.70 L (3.80-5.40) m/uL Hgb 8.7 L D (11.4-16.0) gm/dL Hct 26.4 L (34.0-46.0) % Plt Count 67 L (150-450) k/uL Sodium 131 L (137-145) mmol/L Potassium (3.5-5.1) mmol/L BUN <2 L (7-17) mg/dL Creatinine 0.29 L (0.52-1.04) mg/dL Glucose 102 H (74-99) mg/dL Calcium 6.8 L (8.4-10.2) mg/dL Magnesium 2.4 H (1.6-2.3) mg/dL C. difficile (EIA) Intrp (Negative) Microbiology - Last 24 Hours (Table) 04/14/19 23:37 Blood Culture - Preliminary Blood No Growth after 24 hours Diabetes panel 04/15/19 04/15/19 04/16/19 Range/Units 14:48 21:06 04:50 Sodium 131 L (137-145) mmol/L Potassium 2.6 L* 2.6 L* 3.5 (3.5-5.1) mmol/L Chloride 101 (98-107) mmol/L Carbon Dioxide 24 (22-30) mmol/L BUN <2 L (7-17) mg/dL Creatinine 0.29 L (0.52-1.04) mg/dL Glucose 102 H (74-99) mg/dL Calcium 6.8 L (8.4-10.2) mg/dL Calcium panel 04/16/19 Range/Units 04:50 Calcium 6.8 L (8.4-10.2) mg/dL Pituitary panel 04/15/19 04/15/19 04/16/19 Range/Units 14:48 21:06 04:50 Sodium 131 L (137-145) mmol/L Potassium 2.6 L* 2.6 L* 3.5 (3.5-5.1) mmol/L Chloride 101 (98-107) mmol/L Carbon Dioxide 24 (22-30) mmol/L BUN <2 L (7-17) mg/dL Creatinine 0.29 L (0.52-1.04) mg/dL Glucose 102 H (74-99) mg/dL Calcium 6.8 L (8.4-10.2) mg/dL Adrenal panel 04/15/19 04/15/19 04/16/19 Range/Units 14:48 21:06 04:50 Sodium 131 L (137-145) mmol/L Potassium 2.6 L* 2.6 L* 3.5 (3.5-5.1) mmol/L Chloride 101 (98-107) mmol/L Carbon Dioxide 24 (22-30) mmol/L BUN <2 L (7-17) mg/dL Creatinine 0.29 L (0.52-1.04) mg/dL Glucose 102 H (74-99) mg/dL Calcium 6.8 L (8.4-10.2) mg/dL
--- NOTE | 2019-04-16 13:51 | ECHOF ---
Referral Reason:prolonged QT MEASUREMENTS -------- HEIGHT: 162.6 cm WEIGHT: 48.1 kg BP: 121/69 RVIDd: 1.9 cm (< 3.3) IVSd: 1.0 cm (0.6 - 1.1) LVIDd: 3.7 cm (3.9 - 5.3) LVPWd: 1.0 cm (0.6 - 1.1) IVSs: 1.1 cm LVIDs: 2.1 cm LVPWs: 1.4 cm LAESV Index (A-L): 19.84 ml/m Ao Diam: 2.3 cm (2.0 - 3.7) AV Cusp: 1.3 cm (1.5 - 2.6) LA Diam: 2.5 cm (2.7 - 3.8) MV EXCURSION: 12.972 mm (> 18.000) MV EF SLOPE: 44 mm/s (70 - 150) EPSS: 0.3 cm MV E Yovany: 0.71 m/s MV DecT: 202 ms MV A Yovany: 0.77 m/s MV E/A Ratio: 0.93 RAP: 5.00 mmHg RVSP: 28.48 mmHg FINDINGS -------- Resting tachycardia (HR>100bpm). This was a technically difficult study with suboptimal apical views. The left ventricular size is normal. Left ventricular wall thickness is normal. Overall left vent ricular systolic function is normal with, an EF between 60 - 65 %. The right ventricle is normal in size. Normal LA size by volume 22+/-6 ml/m2. The right atrial size is normal. Lumason used Interatrial and interventricular septum intact. The aortic valve is trileaflet and appears structurally normal. The mitral valve is normal. Mild tricuspid regurgitation present. There is no evidence of pulmonary hypertension. The right v entricular systolic pressure, as measured by Doppler, is 28.48mmHg. Pulmonic valve appears structurally normal. The aortic root size is normal. Normal inferior vena cava with normal inspiratory collapse consistent with estimated right atrial pre ssure of 5 mmHg. There is no pericardial effusion. CONCLUSIONS -------- 1. Resting tachycardia (HR>100bpm). 2. This was a technically difficult study with suboptimal apical views. 3. The left ventricular size is normal. 4. Left ventricular wall thickness is normal. 5. Overall left ventricular systolic function is normal with, an EF between 60 - 65 %. 6. The right ventricle is normal in size. 7. Normal LA size by volume 22+/-6 ml/m2. 8. The right atrial size is normal. 9. Lumason used 10. Interatrial and interventricular septum intact. 11. The aortic valve is trileaflet and appears structurally normal. 12. The mitral valve is normal. 13. Mild tricuspid regurgitation present. 14. There is no evidence of pulmonary hypertension. 15. The right ventricular systolic pressure, as measured by Doppler, is 28.48mmHg. 16. Pulmonic valve appears structurally normal. 17. The aortic root size is normal. 18. Normal inferior vena cava with normal inspiratory collapse consistent with estimated right atrial pressure of 5 mmHg. 19. There is no pericardial effusion. ICU REGISTERED NURSE: Beatriz Pizarro RDCS
--- NOTE | 2019-04-16 14:00 | PN ---
PROGRESS NOTE This patient was seen for the abnormal QT interval. Patient has a history of cancer and she was admitted with nausea, vomiting and diarrhea. Yesterday patient's potassium was 2.6 and with a low . It is being corrected. Potassium is still 3.5. EKG shows improvement in the QT interval. We will recommend to keep the patient's potassium about 4. Today I will give him IV potassium x4. We will now see the patient p.r.n. ITZ / SUZI: [id number] /
--- NOTE | 2019-04-16 14:21 | CDI ---
Documentation Clarification Form Date: 04/16/2019 2:03:16 PM From: Yeni WilsonJUNI, CCDS Admit Date: 04/15/2019 12:12:00 AM Patient Name: Soo Pate Visit Number: [id number] Discharge Date: ATTENTION: The Clinical Documentation Specialists (CDI) and [facility] Coding Staff appreciate your assistance in clarifying documentation. Please respond to the clarification below the line at the bottom and electronically sign. The CDI & [facility] Coding staff will review the response and follow-up if needed. Please note: Queries are made part of the Legal Health Record. If you have any questions, please contact the author of this message via ITS. Dr. Kemal Ponce: Per the 04/15 Oncology Consult: "On arrival she had an EKG revealing QT prolongation, labs showing hypercalcemia. 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 LAB: K: 2.8*, 3.0*, 2.6, 2.6, 3.5; Calcium: 8.1*, 7.0*, 6.8* Clinical indicators: Presented with mucositis, Pancytopenia & "Hypokalemia", Anorexia, Intractable nausea & vomiting. Treatment: IV Morphine, IV Zofran, IV fluid bolus, IV Kcl, IV MagSulf, IV Narcan, IV Zosyn. Clinical significance of diagnostic testing and treatment cannot be assumed or coded without physician documentation of significance if any. Please clarify the documentation per the abnormal laboratory values: Hypercalcemia Hypocalcemia Hyperkalemia Hypokalemia Unable to determine Other, please specify (Last Revision: August 2017) MTDD
[2019-04-16] MEDS: metroNIDAZOLE-NS PMX 500 MG in SALINE 1 100ML.BAG IVPB SCH ×2 (16:07→23:47)
--- NOTE | 2019-04-16 16:07 | CT ---
EXAMINATION TYPE: CT abdomen pelvis w con DATE OF EXAM: 04/16/2019 COMPARISON: PET/CT scan 02/26/2019 HISTORY: Generalized pain, C Diff, and leukopenia. CT DLP: 563.7 mGycm Automated exposure control for dose reduction was used. TECHNIQUE: Helical acquisition of images was performed from the lung bases through the pelvis. CONTRAST: Performed without Oral Contrast and with IV Contrast, patient injected with 100 mL of Isovue 300. FINDINGS: There is some patchy atelectasis at the lung bases. There is right pleural effusion. There is a right -sided paraspinal low-density mass at the T10 level with some sclerotic and lytic changes involving t he T10 vertebral body. There is slight compression deformity of T10 of 20%. Liver shows no focal defe ct. Gallbladder is distended and measures 3.8 cm. There is no evidence of splenic mass. Stomach appea rs normal. There is no evidence of pancreatic mass. There is no adrenal mass. Kidneys show satisfactory contrast opacification. There is no hydronephrosi s. There is no retroperitoneal adenopathy. There is high density material apparently in the cecum fro m medication. Ureters are not dilated. There is no retroperitoneal adenopathy. There is no evidence o f a bowel obstruction. There is distended gas filled transverse colon. There is suggestion of mild wa ll thickening of the large bowel. There is no evidence of free air. There is no ascites. Uterus is an teverted. I see no pelvic mass. I see no definite mesenteric edema. There is some mild sclerosis involving the left side of the sacrum. This extends to the left sacroili ac joint. I see no pelvic fracture. IMPRESSION: SMALL RIGHT PLEURAL EFFUSION. SCLEROTIC AND LYTIC CHANGES IN PATHOLOGIC FRACTURE OF T10 VERTEBRAL AND PARASPINAL MASS CONSISTENT WITH METASTATIC DISEASE. UNCHANGED. PLEURAL FLUID IS NEW COMPARED TO OLD EXAM. ATELECTASIS NEW COMPARED TO OLD EXAM. MILDLY DILATED TRANSVERSE COLON CONSISTENT WITH ILEUS. THERE IS NEW MILD WALL THICKENING OF THE LARGE BOWEL COMPARED TO OLD EXAM AND CONSISTENT WITH COLITIS. SCLEROTIC CHANGES OF THE LEFT SIDE OF THE SACRUM SUGGESTIVE OF METASTATIC DISEASE.
[2019-04-16] MEDS: ALPRAZolam 0.25 MG TAB PO PRN (21:27)
[2019-04-16] MEDS ORDERED: POTASSIUM CHLORIDE 10 MEQ in WATER FOR INJECTION 1 100ML.BAG IVPB STA (21:28)
--- NOTE | 2019-04-16 22:06 | P.CONS ---
History of Present Illness - Reason for Consult Consult date: 04/16/19 C. 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 patient did receive her first chemotherapy on 04/07/2019 patient she did okay for the next 2 days however afterwards started having problems with the not feeling well some sore throat sores in her mouth, few days later on Friday the patient started having intractable vomiting followed by abdominal pain which has been crampy intensity 7-8 out of 10 and no radiation the patient started having diarrhea with numerous loose stools almost 11 episode last night no blood or mucus in the stool with the symptoms the patient presented to hospital patient has been admitted to the ICU and was treated with Zosyn empirically as the patient wants to be leukopenic with low-grade fever stool for C. diff was sent which came back positive by mouth vancomycin was added and infectious disease was consulted Gen. surgery has seen the patient and has requested a CT of abdominal pelvis scheduled for this afternoon Review of Systems CONSTITUTIONAL: Positive for weakness. Fever EYES: No complaint. ENT:No complaint. RESPIRATORY: Shortness of breath and cough CARDIOVASCULAR: No complaint. GENITOURINARY: No complaint. GASTROINTESTINAL: As per history of present illness. MUSCULOSKELETAL: No complaint. INTEGUMENTARY: No complaint. PSYCHOLOGICAL: No complaint. ENDOCRINE: No complaint. NEUROLOGIC: No complaint. Past Medical History Past Medical History: Cancer, GERD/Reflux, Hypertension, Thyroid Disorder Additional Past Medical History / Comment(s): Adenoma lung cancer with mets to thoracic spine-received 1st chemo 04/07/19 and is undergoing radiation treatments to back, psoriatic arthritis, past back pain, hypothyroid. History of Any Multi-Drug Resistant Organisms: None Reported Additional Past Surgical History / Comment(s): 02/19/19 Bronchoscopy/BAL, bx, bone marrow biopsy, colonoscopy, L wrist ganglion cyst removed, colonoscopy Past Anesthesia/Blood Transfusion Reactions: No Reported Reaction Past Psychological History: Anxiety Smoking Status: Current every day smoker (75year pack history) Past Alcohol Use History: None Reported Past Drug Use History: None Reported - Past Family History Mother Family Medical History: Hypertension, Thyroid Disorder Additional Family Medical History / Comment(s): Hypothyroid Father Family Medical History: No Reported History Additional Family Medical History / Comment(s): Father is healthy Medications and Allergies Home Medications Medication Instructions Recorded Confirmed Type ALPRAZolam [Xanax] 0.25 mg PO DAILY PRN 02/18/19 04/14/19 History Diltiazem HCl [Diltiazem 24Hr ER] 180 mg PO DAILY 02/18/19 04/14/19 History Ibuprofen [Motrin] 800 mg PO TID PRN 02/18/19 04/14/19 History Levothyroxine Sodium [Synthroid] 50 mcg PO DAILY 02/18/19 04/14/19 History HYDROcodone/APAP 7.5-325MG [Shohola 1 tab PO Q6H 03/02/19 04/14/19 History 7.5-325] Calcium Carbonate/Vitamin D3 2 tab PO DAILY 04/14/19 04/14/19 History [Calcium 600-Vit D3 200 Tablet] Folic Acid 1 mg PO DAILY 04/14/19 04/14/19 History fentaNYL 25MCG/HR PATCH [Duragesic 1 patch TRANSDERM Q72H 04/14/19 04/14/19 History 25MCG/HR] valACYclovir HCL [Valacyclovir] 1,000 mg PO Q12HR 04/14/19 04/14/19 History Famotidine 40 mg PO BID #60 tab 04/15/19 Rx Allergies Allergy/AdvReac Type Severity Reaction Status Date / Time No Known Allergies Allergy Verified 04/14/19 20:28 Physical Exam Vitals: Vital Signs Temp Pulse Pulse Resp BP BP Pulse Ox 04/16/19 12:00 100.1 F H 108 H 26 H 111/68 04/16/19 11:00 105 H 24 04/16/19 10:00 109 H 26 H 04/16/19 08:00 97 F L 102 H 16 114/75 04/16/19 04:00 98.6 F 118 H 22 114/75 97 04/16/19 00:00 99.7 F H 113 H 14 132/87 98 04/15/19 20:00 98 F 120 H 20 112/74 120/73 97 04/15/19 18:00 113 H 25 H 112/74 04/15/19 16:00 99.0 F 104 H 114 H 20 121/69 114/72 94 L Intake and Output 04/15/19 04/16/19 04/16/19 22:59 06:59 14:59 Intake Total 4980 1360 200 Output Total 300 Balance 4680 1360 200 Intake: IV 240 960 Sodium Chloride 0.9% 1, 240 960 000 ml @ 120 mls/hr IV . Q8H20M [facility] Rx#:[id number] Intake, IV Titration 4400 200 Amount Magnesium Sulfate-D5w Pmx 200 1 gm In Dextrose/Water 1 100ml.bag @ 100 mls/hr IVPB Q1H [facility] Rx#: [id number] Piperacillin-Tazobactam 3 200 100 .375 gm In Sodium Chloride 0.9% 100 ml @ 25 mls/hr IVPB Q8HR [facility] Rx# :[id number] Potassium Chloride 20 meq 100 In Water For Injection 1 100ml.bag @ 50 mls/hr IVPB Q2HR [facility] Rx#: [id number] Sodium Chloride 0.9% 1, 1000 000 ml @ 120 mls/hr IV . Q8H20M [facility] Rx#:[id number] Sodium Chloride 0.9% 1, 3000 000 ml @ 999 mls/hr IV . Q1H1M [facility] Rx#:[id number] Oral 340 400 Output: Urine 300 Other: # Voids 1 3 # Bowel Movements 2 3 Weight 55.8 kg 55.8 kg GENERAL DESCRIPTION: Middle-aged female lying in bed, no distress. No tachypnea or accessory muscle of respiration use. HEENT: Shows Pallor , no scleral icterus. Oral mucous membrane is dry. No pharyngeal erythema or thrush NECK: Trachea central, no thyromegaly. LUNGS: Unlabored breathing. Clear to auscultation anteriorly. No wheeze or crackle. HEART: S1, S2, regular rate and rhythm. No loud murmur ABDOMEN: Soft, mild lower quadrant tenderness , no guarding or rigidity EXTREMITIES: No edema of feet. SKIN: No rash, no masses palpable. NEUROLOGICAL: The patient is awake, alert, oriented x3, mood and affect normal Results CBC & Chem 7: 04/16/19 04:50 04/16/19 04:50 Labs: Abnormal Lab Results - Last 24 Hours (Table) 04/15/19 04/15/19 04/15/19 Range/Units 14:48 21:06 21:10 WBC (3.8-10.6) k/uL RBC (3.80-5.40) m/uL Hgb (11.4-16.0) gm/dL Hct (34.0-46.0) % Plt Count (150-450) k/uL Sodium (137-145) mmol/L Potassium 2.6 L* 2.6 L* (3.5-5.1) mmol/L BUN (7-17) mg/dL Creatinine (0.52-1.04) mg/dL Glucose (74-99) mg/dL Calcium (8.4-10.2) mg/dL Magnesium (1.6-2.3) mg/dL C. difficile (EIA) Intrp Positive A (Negative) 04/16/19 04/16/19 Range/Units 04:50 04:50 WBC 0.9 L* (3.8-10.6) k/uL RBC 2.70 L (3.80-5.40) m/uL Hgb 8.7 L D (11.4-16.0) gm/dL Hct 26.4 L (34.0-46.0) % Plt Count 67 L (150-450) k/uL Sodium 131 L (137-145) mmol/L Potassium (3.5-5.1) mmol/L BUN <2 L (7-17) mg/dL Creatinine 0.29 L (0.52-1.04) mg/dL Glucose 102 H (74-99) mg/dL Calcium 6.8 L (8.4-10.2) mg/dL Magnesium 2.4 H (1.6-2.3) mg/dL C. difficile (EIA) Intrp (Negative) Microbiology - Last 24 Hours (Table) 04/14/19 23:37 Blood Culture - Preliminary Blood No Growth after 24 hours Assessment and Plan Assessment: 1-patient admitted to hospital with sepsis in this patient who did have a low- grade fever 100.9 the patient did have tachycardia leukopenia in this patient who is admitted to compromise received chemotherapy for her underlying metastatic adenocarcinoma 2 weeks ago with significant GI symptoms specially abd ominal pain and diarrhea with stool for C. diff positive likely severe C. diff colitis, and currently with no other clinical focus of infection (1) Sepsis Current Visit: Yes Status: Acute Code(s): A41.9 - SEPSIS, UNSPECIFIED ORGANISM SNOMED Code(s): 22405827 (2) C. difficile colitis Current Visit: Yes Status: Acute Code(s): A04.72 - ENTEROCOLITIS D/T CLOSTRIDIUM DIFFICILE, NOT SPCF RECUR SNOMED Code(s): 307020074 Plan: 1-we will increase vancomycin to 500 mg by mouth every 6 hours and and Flagyl 500 IV every 8 hour 2-discontinue Zosyn as no other clinical focus of infection and decrease worsening of her C. diff colitis 3-IV fluids 4-await CT of abdominal pelvis to make sure no evidence of toxic megacolon We will follow-up on her clinical condition and cultures to further adjust medication if needed Thank you for this consultation will follow this patient along with you Time with Patient: Greater than 30
[2019-04-16] MEDS ORDERED: POTASSIUM CHLORIDE 10 MEQ in WATER FOR INJECTION 1 100ML.BAG IVPB ONE (23:00)
[2019-04-17] MEDS: MORPHINE SULFATE 4 MG/ML SYRINGE IVP PRN ×4 (02:43→21:05)
[2019-04-17] MEDS: HYDROcodone/APAP 7.5-325MG 1 EACH TAB PO SCH ×3 (04:57→17:40)
[2019-04-17 05:46] LABS: HCT 23.5 % (34.0-46.0); HGB 8.3 gm/dL (11.4-16.0); MCH 34.2 pg (25.0-35.0); MCHC 35.3 g/dL (31.0-37.0); MCV 96.9 fL (80.0-100.0); Mean Platelet Volume 7.7; RBC 2.42 m/uL (3.80-5.40); RDW 14.6 % (11.5-15.5); WBC 1.8 k/uL (3.8-10.6)
[2019-04-17] MEDS: VANCOMYCIN ORAL SOLUTION 250 MG/5 ML BOTTLE PO SCH ×3 (06:03→17:41)
[2019-04-17] MEDS: CHERRY FLAVOR 60 ML BOTTLE PO SCH ×3 (06:03→18:43)
[2019-04-17] MEDS: SALT AND SODA MOUTHWASH 1,000 ML PO SCH ×4 (06:07→21:06)
[2019-04-17] MEDS: MAG HYDROX/AL HYDROX/SIMETH 30 ML, LIDOCAINE VISCOUS 30 ML, diphenhydrAMINE ELIXIR 75 M... PO SCH ×16 (06:08→21:06)
[2019-04-17] MEDS: LEVOTHYROXINE 50 MCG TAB PO SCH (06:08)
[2019-04-17 06:23] LABS: Anion Gap 5 mmol/L; Blood Urea Nitrogen <2 mg/dL (7-17); Carbon Dioxide 21 mmol/L (22-30); Chloride 105 mmol/L (98-107); Glucose 84 mg/dL (74-99); Magnesium 2.1 mg/dL (1.6-2.3); Potassium 3.5 mmol/L (3.5-5.1); Sodium 131 mmol/L (137-145)
[2019-04-17 06:35] LABS: Nucleated Red Blood Cells 0 /100 WBC (0-0)
[2019-04-17 06:37] LABS: Blast Cells # (M) 0.04 k/uL (0); Lymphocytes # (M) 0.34 k/uL (1.0-4.8)
[2019-04-17 06:38] LABS: Band Neutrophils % 20 %; Monocytes # (M) 0.41 k/uL (0-1.0); Neutrophils % (M) 37 %; Total Cells Counted 200
[2019-04-17 06:39] LABS: Platelet Count 52 k/uL (150-450)
[2019-04-17] MEDS: DRONABINOL 2.5 MG CAP PO SCH ×2 (06:50→17:40)
[2019-04-17] MEDS: POTASSIUM CHLORIDE 10 MEQ in WATER FOR INJECTION 1 100ML.BAG IVPB SCH ×2 (06:50→08:33)
--- NOTE | 2019-04-17 07:26 | P.PN ---
Subjective This is a pleasant 49 years old female with past medical history of hypothyroidism, hypertension recent lung adenocarcinoma cancer status post radi otherapy and chemotherapy, with metastasis to the spine, back pain and some right tic arthritis, everyday current smoker. She's follow up with Dr. zamora her oncologist. Presents with nausea vomiting and diarrhea and inability to eat or drink. Patient had last chemotherapy on 04/07/2019 as per patient, in 2 days patient started have some nausea and vomiting and sore throat associated with some trouble swallowing, she couldn't eat and drink only a little bit. She had recurrent back pain where the cancer is. She went to her oncology office about 2 days ago where she was treated with IV fluids however with persistence of her symptoms of nausea vomiting her doctor advised her to come to emergency room. Also patient is complaining of from dysuria but without increased frequency, and yesterday she started having loose bowel movement for about 2-3 times per day associated with abdominal cramps. Patient denies fever or chills. No chest pain or dyspnea. No coughing. But she has loss of appetite. On admission patient noticed to be hypotensive with blood pressure 96/54, but tachycardic around 100. She saturating 95 on room air. Appropriate. She has pancytopenia with W BCU 1.0, neutrophil count is around 500, hemoglobin 11.2 and platelets 103. She has mild hyponatremia with sodium 133, potassium 2.8. Creatinine 0.8. Lactic acid 1.0. AST 41 and ALT 48. Urinalysis is suspicious for infection. Chest x-ray showing no acute process as per Radiologist. EKG showing normal sinus rhythm at 96, with QTC prolongation at 533. In the hospital patient received pain management, IV fluids, and potassium replacement per protocol. Patient was started on Zosyn and pain management. 04/16/2019 pt is awake fully in the icu. she says she feels better. no chest pain or dyspnea, she has abdominal pain and her c diff came back positive and she is on antibiotic now with iv fluid. her low potassium is corrected. she has significant abd tenderness, abd xray is ordered and surgical team were consulted. pt is on oral vancomycin and infectious disease were consulted. cardiology team are following the case for qt prolongation . she is recent lung adenocarcinoma cancer status post radiotherapy and chemotherapy seen by oncology Objective - Vital Signs Vital signs: Vital Signs Temp 100.1 F H 04/16/19 16:00 Pulse 105 H 04/16/19 16:00 Resp 22 04/16/19 16:00 BP 114/72 04/16/19 16:00 Pulse Ox 96 04/16/19 16:00 Intake & Output 04/16/19 04/16/19 04/17/19 06:59 18:59 06:59 Intake Total 1700 1700 Balance 1700 1700 Weight 55.8 kg 55.8 kg Intake: IV 1200 1400 Potassium Chloride 20 meq 200 In Water For Injection 1 100ml.bag @ 50 mls/hr IVPB Q2HR [facility] Rx#: [id number] Sodium Chloride 0.9% 1, 1200 1200 000 ml @ 120 mls/hr IV . Q8H20M [facility] Rx#:[id number] Intake, IV Titration 300 Amount Piperacillin-Tazobactam 3 100 .375 gm In Sodium Chloride 0.9% 100 ml @ 25 mls/hr IVPB Q8HR [facility] Rx# :[id number] Potassium Chloride 20 meq 100 In Water For Injection 1 100ml.bag @ 50 mls/hr IVPB Q2HR [facility] Rx#: [id number] metroNIDAZOLE-NS PMX 500 100 mg In Saline 1 100ml.bag @ 100 mls/hr IVPB Q8HR [facility] Rx#:[id number] Oral 500 Other: # Voids 3 # Bowel Movements 3 - Exam GENERAL: The patient is alert and oriented x3, not in any acute distress. Well developed, well nourished. HEENT: Pupils are round and equally reacting to light. EOMI. No scleral icterus. No conjunctival pallor. Normocephalic, atraumatic. No pharyngeal erythema. No thyromegaly. CARDIOVASCULAR: S1 and S2 present. No murmurs, rubs, or gallops. PULMONARY: Chest is clear to auscultation, no wheezing or crackles. -ABDOMEN: Soft, nontender, acute generalized abd tenderness more across the umbilicus, normoactive bowel sounds. No palpable organomegaly. MUSCULOSKELETAL: No joint swelling or deformity. EXTREMITIES: No cyanosis, clubbing, or pedal edema. NEUROLOGICAL: Gross neurological examination did not reveal any focal deficits. SKIN: No rashes. - Labs CBC & Chem 7: 04/17/19 04:38 04/17/19 04:38 Labs: Abnormal Lab Results - Last 24 Hours (Table) 04/15/19 04/15/19 04/16/19 Range/Units 21:06 21:10 04:50 WBC 0.9 L* (3.8-10.6) k/uL RBC 2.70 L (3.80-5.40) m/uL Hgb 8.7 L D (11.4-16.0) gm/dL Hct 26.4 L (34.0-46.0) % Plt Count 67 L (150-450) k/uL Sodium (137-145) mmol/L Potassium 2.6 L* (3.5-5.1) mmol/L BUN (7-17) mg/dL Creatinine (0.52-1.04) mg/dL Glucose (74-99) mg/dL Calcium (8.4-10.2) mg/dL Magnesium (1.6-2.3) mg/dL C. difficile (EIA) Intrp Positive A (Negative) 04/16/19 Range/Units 04:50 WBC (3.8-10.6) k/uL RBC (3.80-5.40) m/uL Hgb (11.4-16.0) gm/dL Hct (34.0-46.0) % Plt Count (150-450) k/uL Sodium 131 L (137-145) mmol/L Potassium (3.5-5.1) mmol/L BUN <2 L (7-17) mg/dL Creatinine 0.29 L (0.52-1.04) mg/dL Glucose 102 H (74-99) mg/dL Calcium 6.8 L (8.4-10.2) mg/dL Magnesium 2.4 H (1.6-2.3) mg/dL C. difficile (EIA) Intrp (Negative) Microbiology - Last 24 Hours (Table) 04/14/19 23:37 Blood Culture - Preliminary Blood No Growth after 24 hours Assessment and Plan Assessment: Acute urinary tract infection Pancytopenia, related to her recent chemotherapy. Recurrent nausea vomiting, with diarrhea. Most likely reactive gastroenteritis. Hypokalemia with QTC prolongation Dehydration Sore throat present on admission Metastatic adenocarcinoma of the lung, status post radiotherapy History of sciatica nephritis Nicotine dependence Plan: This is a pleasant 49 years old female who presents with a tract infection. Of her lung cancer, And QT prolongation. Patient will be admitted to the cardiac unit. Continue with IV fluids, antibiotics. Follow-up blood and urine culture. Call cardiology consult, oncology team to evaluate the patient. Check influenza, C. diff and stool, Labs and medication were reviewed.. Continue same treatment. Continue with symptomatic treatment. Resume home medication. Monitor lytes and vitals. DVT and GI prophylaxis. Further recommendations of t kristin clinical course of the patient DVT prophylaxis: Subcutaneous heparin GI Prophylaxis: Pepcid PT/OT: Pending Prognosis is guarded
[2019-04-17] MEDS: metroNIDAZOLE-NS PMX 500 MG in SALINE 1 100ML.BAG IVPB SCH ×2 (08:33→15:55)
[2019-04-17] MEDS: CALCIUM CARB-VIT D 500MG-200UN 1 EACH TAB PO SCH (08:33)
[2019-04-17] MEDS: FILGRASTIM-SNDZ 300 MCG/0.5 ML SYRINGE SQ SCH (08:33)
[2019-04-17] MEDS: FOLIC ACID 1 MG TAB PO SCH (08:34)
[2019-04-17] MEDS: SODIUM CHLORIDE 0.9% 1,000 ML IV SCH ×2 (11:53→18:44)
--- NOTE | 2019-04-17 11:55 | P.PN ---
Subjective Progress Note Date: 04/17/19 Principal diagnosis: Febrile neutropenia C. diff colitis Mucositis Neutropenia improved with G-CSF. Anemia/thrombocytopenia stable. Nausea and vomiting resolved. Her mucositis much improved. Continues to have abdominal cramping pain and diarrhea. About 6 bowel movements already today. Objective - Vital Signs Vital signs: Vital Signs Temp 99.5 F 04/17/19 08:00 Pulse 95 04/17/19 08:00 Resp 18 04/17/19 08:00 BP 114/81 04/17/19 08:00 Pulse Ox 98 04/17/19 04:00 Intake & Output 04/16/19 04/17/19 04/17/19 18:59 06:59 18:59 Intake Total 1700 1840 680 Output Total 300 Balance 1700 1540 680 Weight 55.8 kg 57.6 kg Intake: IV 1400 1640 580 Potassium Chloride 10 meq 200 100 In Water For Injection 1 100ml.bag @ 100 mls/hr IVPB ONCE ONE Rx#: [id number] Potassium Chloride 20 meq 200 In Water For Injection 1 100ml.bag @ 50 mls/hr IVPB Q2HR [facility] Rx#: [id number] Sodium Chloride 0.9% 1, 1200 1440 480 000 ml @ 120 mls/hr IV . Q8H20M [facility] Rx#:[id number] Intake, IV Titration 300 Amount Piperacillin-Tazobactam 3 100 .375 gm In Sodium Chloride 0.9% 100 ml @ 25 mls/hr IVPB Q8HR [facility] Rx# :[id number] Potassium Chloride 20 meq 100 In Water For Injection 1 100ml.bag @ 50 mls/hr IVPB Q2HR [facility] Rx#: [id number] metroNIDAZOLE-NS PMX 500 100 mg In Saline 1 100ml.bag @ 100 mls/hr IVPB Q8HR [facility] Rx#:[id number] Oral 200 100 Output: Urine 300 Other: # Voids 1 1 # Bowel Movements 1 1 - Exam General: NAD. HEENT: Mucosa moist. Mouth and teeth with blue discoloration due to recently eating blue jello. Mucositis, appears more like cold sore lesions, on lips. Healing. No significant oral mucositis seen. Neck: Supple. Lungs: CTA-B. Heart: Regular rate and rhythm. Abd: Soft, nontender. Decreased BS. MSK: Moving all 4 extremities spontaneously. Neuro: A&O x 3. Extremities: No LE edema Skin: No jaundice. Psych: Appropriate affect. Anxious about future cycles of chemotherapy and go ing through the same side effects. - Labs CBC & Chem 7: 04/17/19 04:38 04/17/19 04:38 Labs: Abnormal Lab Results - Last 24 Hours (Table) 04/17/19 04/17/19 Range/Units 04:38 04:38 WBC 1.8 L (3.8-10.6) k/uL RBC 2.42 L (3.80-5.40) m/uL Hgb 8.3 L (11.4-16.0) gm/dL Hct 23.5 L (34.0-46.0) % Plt Count 52 L (150-450) k/uL Blast Cells % 2 H* % Neutrophils # (Manual) 1.00 L (1.3-7.7) k/uL Lymphocytes # (Manual) 0.34 L (1.0-4.8) k/uL Blast Cells # (Man) 0.04 H (0) k/uL Sodium 131 L (137-145) mmol/L Carbon Dioxide 21 L (22-30) mmol/L BUN <2 L (7-17) mg/dL Creatinine 0.27 L (0.52-1.04) mg/dL Calcium 7.0 L (8.4-10.2) mg/dL Microbiology - Last 24 Hours (Table) 04/14/19 23:37 Blood Culture - Preliminary Blood No Growth after 48 hours Assessment and Plan Assessment: 1. Febrile neutropenia 2. C. diff colitis 3. Pancytopenia due to chemotherapy 4. Intractable N/V 5. Newly diagnosed metastatic lung adenocarcinoma cancer, s/p 1 cycle of palliative chemotherapy with carbo/alimta/keytruda on 04/07/19 Plan: Ms. Pate is a very pleasant 49 yo female with newly diagnosed metastatic lung adenocarcinoma with bone met's, s/p palliative RT to spinal met followed by cycle 1 of palliative chemotherapy with carbo/alimta/keytruda, here for significant chemotherapy related toxicity. 1. Febrile neutropenia - Neutropenic due to chemotherapy, with identified C. difficile colitis and mucositis. On antibiotics. Surgery and ID following. G- CSF started, ANC 2 this am. Continue G-CSF for now and continue to monitor. Overall improving. 2. C. diff colitis - Concern for toxic megacolon. Surgery on board. No objections to surgery if needed. Continue antibiotics as per ID. Slowly improving. 3. Pancytopenia due to chemotherapy - She is likely at her paramjit and will start to slowly improve. On G-CSF with improved neutropenia. Continue G-CSF for now. Will stop possibly tomorrow if neutrophils go up significantly tomorrow. Hgb and plt stable. Supportive transfusion as needed for Hgb <7 or plt <20. If surgery needed, will plan on maintaining Hgb >8 and plt >50. 4. Intractable N/V - Due to chemotherapy and C. diff colitis. Resolved. Has prolonged QT interval. Cardiology on board. Will use antiemetics with caution as compazine and zofran can worsen QT prolongation. Replace electrolytes and 2D echo pending. 5. Newly diagnosed metastatic lung adenocarcinoma cancer, s/p 1 cycle of palliative chemotherapy with carbo/alimta/keytruda on 04/07/19. Hold chemotherapy for now. Will need adjustment to her dosing/regimen as outpatient prior to resuming further chemotherapy, possibly with adding G-CSF and prophylaxis for oral HSV. Discussed with pt in detail and she is agreeable to the plan. All questions answered.
--- NOTE | 2019-04-17 14:39 | P.PN ---
Subjective Progress Note Date: 04/17/19 Principal diagnosis: Severe C. diff colitis QT prolongation Abdominal distention- ileus 49 years old female with past medical history of hypothyroidism, hypertension recent lung adenocarcinoma cancer status post radiotherapy and chemotherapy, with metastasis to the spine, back pain and some right tic arthritis, everyday current smoker. She's follow up with Dr. zamora her oncologist. Presents with nausea vomiting and diarrhea and inability to eat or drink. Patient had last chemotherapy on 04/07/2019 as per patient, in 2 days patient started have some nausea and vomiting and sore throat associated with some trouble swallowing, she couldn't eat and drink only a little bit. On admission patient noticed to be hypotensive with blood pressure 96/54, but tachycardic around 100. She saturating 95 on room air. Appropriate. She has pancytopenia with W BCU 1.0, neutrophil count is around 500, hemoglobin 11.2 and platelets 103. She has mild hyponatremia with sodium 133, potassium 2.8. Creatinine 0.8. Lactic acid 1.0. AST 41 and ALT 48. Urinalysis is suspicious for infection. Chest x-ray showing no acute process as per Radiologist. EKG showing normal sinus rhythm at 96, with QTC prolongation at 533. In the hospital patient received pain management, IV fluids, and potassium replacement per protocol. Patient was started on Zosyn and pain management. 04/17/2019 Patient is seen and evaluated in ICU at bedside; patient requesting to be allowed to be off monitor while she takes a shower and requesting a sleeping aid; patient requesting frequency of morphine to be changed every 3 hours if she needs it Vital signs remained stable with a temperature of 98.3, pulse 100, respiration 15 and blood pressure of 114/81 Labs are reviewed showing a white blood count of 1.8, hemoglobin of 8.3 and platelet count of 52; chemical profile with a sodium of 131, potassium 3.5 and B UN/creatinine of 2/0.27 Objective - Vital Signs Vital signs: Vital Signs Temp 98.3 F 04/17/19 00:00 Pulse 99 04/17/19 00:00 Resp 25 H 04/17/19 00:00 BP 127/87 04/17/19 00:00 Pulse Ox 97 04/17/19 00:00 Intake & Output 04/16/19 04/16/19 04/17/19 06:59 18:59 06:59 Intake Total 1700 1700 1260 Output Total 300 Balance 1700 1700 960 Weight 55.8 kg 55.8 kg Intake: IV 1200 1400 1160 Potassium Chloride 10 meq 200 In Water For Injection 1 100ml.bag @ 100 mls/hr IVPB ONCE ONE Rx#: [id number] Potassium Chloride 20 meq 200 In Water For Injection 1 100ml.bag @ 50 mls/hr IVPB Q2HR [facility] Rx#: [id number] Sodium Chloride 0.9% 1, 1200 1200 960 000 ml @ 120 mls/hr IV . Q8H20M [facility] Rx#:[id number] Intake, IV Titration 300 Amount Piperacillin-Tazobactam 3 100 .375 gm In Sodium Chloride 0.9% 100 ml @ 25 mls/hr IVPB Q8HR [facility] Rx# :[id number] Potassium Chloride 20 meq 100 In Water For Injection 1 100ml.bag @ 50 mls/hr IVPB Q2HR [facility] Rx#: [id number] metroNIDAZOLE-NS PMX 500 100 mg In Saline 1 100ml.bag @ 100 mls/hr IVPB Q8HR [facility] Rx#:[id number] Oral 500 100 Output: Urine 300 Other: # Voids 3 1 # Bowel Movements 3 1 - Exam GENERAL: The patient is alert and oriented x3, not in any acute distress. Well developed, well nourished. HEENT: Pupils are round and equally reacting to light. EOMI. No scleral icterus. No conjunctival pallor. Normocephalic, atraumatic. No pharyngeal erythema. No thyromegaly. CARDIOVASCULAR: S1 and S2 present. No murmurs, rubs, or gallops. PULMONARY: Chest is clear to auscultation, no wheezing or crackles. -ABDOMEN: Soft, nontender, acute generalized abd tenderness more across the umbilicus, normoactive bowel sounds. No palpable organomegaly. MUSCULOSKELETAL: No joint swelling or deformity. EXTREMITIES: No cyanosis, clubbing, or pedal edema. NEUROLOGICAL: Gross neurological examination did not reveal any focal deficits. SKIN: No rashes. - Labs CBC & Chem 7: 04/17/19 04:38 04/17/19 04:38 Labs: Abnormal Lab Results - Last 24 Hours (Table) 04/16/19 04/16/19 Range/Units 04:50 04:50 WBC 0.9 L* (3.8-10.6) k/uL RBC 2.70 L (3.80-5.40) m/uL Hgb 8.7 L D (11.4-16.0) gm/dL Hct 26.4 L (34.0-46.0) % Plt Count 67 L (150-450) k/uL Sodium 131 L (137-145) mmol/L BUN <2 L (7-17) mg/dL Creatinine 0.29 L (0.52-1.04) mg/dL Glucose 102 H (74-99) mg/dL Calcium 6.8 L (8.4-10.2) mg/dL Magnesium 2.4 H (1.6-2.3) mg/dL Microbiology - Last 24 Hours (Table) 04/14/19 23:37 Blood Culture - Preliminary Blood No Growth after 24 hours Assessment and Plan Time with Patient: Greater than 30
--- NOTE | 2019-04-17 17:33 | P.PN ---
Subjective Progress Note Date: 04/17/19 CHIEF COMPLAINT: Abdominal pain HISTORY OF PRESENT ILLNESS: The patient is a 26-year-old female who presents with abdominal pain following chemotherapy with the last 2 weeks for metastatic lung cancer. She reports no new abdominal pain compared to yesterday. She is passing flatus. Her pain has not progressed. No reports of fevers or chills. She is having bowel movements. ROS: No reports of nausea and vomiting. No fevers or chills. No new chest pain. PHYSICAL EXAM: VITAL SIGNS: Reviewed CONSTITUTIONAL: Well developed and in no acute distress. EYES: Conjuctivae without sclera icterus. Extraocular movements grossly intact. HEAD, EARS, NOSE, THROAT: Moist buccal mucosa. Head is atraumatic, normocephalic. Hears conversational speech. No nasal drainage. NECK: Supple. No thyroidomegaly. RESPIRATORY: Non-labored respirations and equal bilateral excursions. CARDIOVASCULAR: Palpable 2+ radial pulses. Regular rate. Regular rhythm. ABDOMEN: Soft. Nondistended. No peritonitis. Diffusely tender. MUSCULOSKELETAL: No gross deformity of the lower extremities noted. No clubbin g. No cyanosis. SKIN: Good skin turgor. Well perfused. NEUROLOGIC: Cranial nerves I through XII grossly intact. No focal or lateralizing signs. PSYCH: Appropriate affect. Alert and oriented to person, place and time. CLINCAL LABS: Leukopenic STUDIES: Independently reviewed. CT of the abdomen and pelvis personally reviewed with diffuse colonic distention of involving the transverse colon. No perforation and pneumoperitoneum identified REPORTS: Radiology report reviewed consistent with ileus. Additionally metastatic changes of the bone metastases identified of the spine ASSESSMENT: 1. Abdominal pain following chemotherapy 2. Ileus per computed tomography scan 3. Colitis following chemotherapy 4. Metastatic lung cancer 5. Clostridium difficile PLAN: 1. Clinically, she is stable compared to yesterday. 2. With her current diagnoses including metastatic lung cancer, conservative management at this time 3. Broad-spectrum antibiotics especially with her immunocompromised state with Clostridium difficile Objective - Vital Signs Vital signs: Vital Signs Temp 98.4 F 04/17/19 16:00 Pulse 99 04/17/19 16:00 Resp 23 04/17/19 16:00 BP 114/81 04/17/19 16:00 Pulse Ox 95 04/17/19 16:00 Intake & Output 05/04/17/19 04/17/19 18:59 06:59 18:59 Intake Total 1700 1840 2040 Output Total 300 700 Balance 1700 1540 1340 Weight 55.8 kg 57.6 kg Intake: IV 1400 1640 1640 Potassium Chloride 10 meq 200 200 In Water For Injection 1 100ml.bag @ 100 mls/hr IVPB ONCE ONE Rx#: [id number] Potassium Chloride 20 meq 200 In Water For Injection 1 100ml.bag @ 50 mls/hr IVPB Q2HR [facility] Rx#: [id number] Sodium Chloride 0.9% 1, 1200 1440 1440 000 ml @ 120 mls/hr IV . Q8H20M [facility] Rx#:[id number] Intake, IV Titration 300 Amount Piperacillin-Tazobactam 3 100 .375 gm In Sodium Chloride 0.9% 100 ml @ 25 mls/hr IVPB Q8HR [facility] Rx# :[id number] Potassium Chloride 20 meq 100 In Water For Injection 1 100ml.bag @ 50 mls/hr IVPB Q2HR [facility] Rx#: [id number] metroNIDAZOLE-NS PMX 500 100 mg In Saline 1 100ml.bag @ 100 mls/hr IVPB Q8HR [facility] Rx#:[id number] Oral 200 400 Output: Urine 300 700 Other: # Voids 1 1 # Bowel Movements 1 3 - Labs CBC & Chem 7: 04/17/19 04:38 04/17/19 04:38 Labs: Abnormal Lab Results - Last 24 Hours (Table) 04/17/19 04/17/19 Range/Units 04:38 04:38 WBC 1.8 L (3.8-10.6) k/uL RBC 2.42 L (3.80-5.40) m/uL Hgb 8.3 L (11.4-16.0) gm/dL Hct 23.5 L (34.0-46.0) % Plt Count 52 L (150-450) k/uL Blast Cells % 2 H* % Neutrophils # (Manual) 1.00 L (1.3-7.7) k/uL Lymphocytes # (Manual) 0.34 L (1.0-4.8) k/uL Blast Cells # (Man) 0.04 H (0) k/uL Sodium 131 L (137-145) mmol/L Carbon Dioxide 21 L (22-30) mmol/L BUN <2 L (7-17) mg/dL Creatinine 0.27 L (0.52-1.04) mg/dL Calcium 7.0 L (8.4-10.2) mg/dL Microbiology - Last 24 Hours (Table) 04/14/19 23:37 Blood Culture - Preliminary Blood No Growth after 48 hours Assessment and Plan (1) Ileus Current Visit: Yes Status: Acute Code(s): K56.7 - ILEUS, UNSPECIFIED SNOMED Code(s): 086564759 (2) Lung cancer metastatic to bone Current Visit: Yes Status: Acute Priority: High Code(s): C34.90 - MALIGNANT NEOPLASM OF UNSP PART OF UNSP BRONCHUS OR LUNG; C79.51 - SECONDARY MALIGNANT NEOPLASM OF BONE SNOMED Code(s): 76195529 (3) Neutropenia Current Visit: Yes Status: Acute Code(s): D70.9 - NEUTROPENIA, UNSPECIFIED SNOMED Code(s): 884971881 (4) Pancytopenia due to antineoplastic chemotherapy Current Visit: Yes Status: Acute Priority: High Code(s): D61.810 - ANTINEOPLASTIC CHEMOTHERAPY INDUCED PANCYTOPENIA; T45.1X5A - ADVERSE EFFECT OF ANTINEOPLASTIC AND IMMUNOSUP DRUGS, INIT SNOMED Code(s): 864101949069617 (5) C. difficile colitis Current Visit: Yes Status: Acute Code(s): A04.72 - ENTEROCOLITIS D/T CLOSTRIDIUM DIFFICILE, NOT SPCF RECUR SNOMED Code(s): 701471902
[2019-04-17] MEDS: ALPRAZolam 0.25 MG TAB PO PRN (21:05)
[2019-04-17] MEDS: ZOLPIDEM 10 MG TAB PO PRN (22:17)
[2019-04-18] MEDS: HYDROcodone/APAP 7.5-325MG 1 EACH TAB PO SCH ×5 (00:02→23:45)
[2019-04-18] MEDS: VANCOMYCIN ORAL SOLUTION 250 MG/5 ML BOTTLE PO SCH ×5 (00:06→23:47)
[2019-04-18] MEDS: CHERRY FLAVOR 60 ML BOTTLE PO SCH ×5 (00:07→23:51)
[2019-04-18] MEDS: MAG HYDROX/AL HYDROX/SIMETH 30 ML, LIDOCAINE VISCOUS 30 ML, diphenhydrAMINE ELIXIR 75 M... PO SCH ×24 (00:07→23:46)
[2019-04-18] MEDS: SALT AND SODA MOUTHWASH 1,000 ML PO SCH ×6 (00:07→23:49)
[2019-04-18] MEDS: metroNIDAZOLE-NS PMX 500 MG in SALINE 1 100ML.BAG IVPB SCH ×4 (00:07→23:48)
[2019-04-18] MEDS: MORPHINE SULFATE 4 MG/ML SYRINGE IVP PRN ×4 (04:55→22:18)
[2019-04-18] MEDS: SODIUM CHLORIDE 0.9% 1,000 ML IV SCH ×3 (04:58→22:30)
[2019-04-18 06:24] LABS: HCT 29.9 % (34.0-46.0); MCH 32.3 pg (25.0-35.0); Mean Platelet Volume 8.5; RBC 3.05 m/uL (3.80-5.40); RDW 14.7 % (11.5-15.5)
[2019-04-18 06:43] LABS: Anion Gap 7 mmol/L; Blood Urea Nitrogen <2 mg/dL (7-17); Calcium 7.4 mg/dL (8.4-10.2); Carbon Dioxide 25 mmol/L (22-30); Chloride 102 mmol/L (98-107); Glucose 80 mg/dL (74-99); Sodium 134 mmol/L (137-145)
[2019-04-18 06:49] LABS: Potassium 2.7 mmol/L (3.5-5.1)
[2019-04-18 07:07] LABS: HGB 9.9 gm/dL (11.4-16.0)
[2019-04-18 07:08] LABS: Platelet Count 53 k/uL (150-450)
[2019-04-18] MEDS: PANTOPRAZOLE 40 MG TABLET PO SCH (07:25)
[2019-04-18] MEDS: DRONABINOL 2.5 MG CAP PO SCH ×2 (07:25→16:14)
[2019-04-18] MEDS: LEVOTHYROXINE 50 MCG TAB PO SCH (07:25)
[2019-04-18 07:31] LABS: Band Neutrophils % 20 %; Neutrophils % (M) 51 %; Nucleated Red Blood Cells 0 /100 WBC (0-0); Total Cells Counted 200
[2019-04-18 07:33] LABS: Anisocytosis (M) Present
[2019-04-18] MEDS: POTASSIUM CHLORIDE 10 MEQ in WATER FOR INJECTION 1 100ML.BAG IVPB SCH ×6 (08:25→16:14)
[2019-04-18] MEDS: FILGRASTIM-SNDZ 300 MCG/0.5 ML SYRINGE SQ SCH (09:38)
[2019-04-18] MEDS: FOLIC ACID 1 MG TAB PO SCH (09:38)
[2019-04-18] MEDS: CALCIUM CARB-VIT D 500MG-200UN 1 EACH TAB PO SCH (09:38)
--- NOTE | 2019-04-18 13:33 | P.PN ---
Subjective Progress Note Date: 04/18/19 CHIEF COMPLAINT: Abdominal pain HISTORY OF PRESENT ILLNESS: The patient is a 26-year-old female who presents with abdominal pain following chemotherapy within the last 2 weeks for metastatic lung cancer. Her family is at bedside. "Feels so much better than yesterday." She reports moderate improvement of her abdominal pain. Bowel movements has been improving today relative to yesterday. No reports of blood in stools. ROS: No reports of nausea and vomiting. No fevers or chills. No new chest pain. PHYSICAL EXAM: VITAL SIGNS: Reviewed CONSTITUTIONAL: Well developed and in no acute distress. EYES: Conjuctivae without sclera icterus. Extraocular movements grossly intact. HEAD, EARS, NOSE, THROAT: Moist buccal mucosa. Head is atraumatic, normocephalic. Hears conversational speech. No nasal drainage. NECK: Supple. No thyroidomegaly. RESPIRATORY: Non-labored respirations and equal bilateral excursions. CARDIOVASCULAR: Palpable 2+ radial pulses. Regular rate. Regular rhythm. ABDOMEN: Soft. Nondistended. No peritonitis. Decreased diffuse abdominal tenderness MUSCULOSKELETAL: No gross deformity of the lower extremities noted. No clubbing. No cyanosis. SKIN: Good skin turgor. Well perfused. NEUROLOGIC: Cranial nerves I through XII grossly intact. No focal or latera lizing signs. PSYCH: Appropriate affect. Alert and oriented to person, place and time. CLINCAL LABS: WBC improved to 5000 from less than 2000. Potassium low under 3.0. ASSESSMENT: 1. Abdominal pain following chemotherapy 2. Ileus per computed tomography scan 3. Colitis following chemotherapy 4. Metastatic lung cancer 5. Clostridium difficile 6. Hypokalemia. 7. Leukopenia. PLAN: 1. Continue the antibiotics for C. diff colitis that she is clinically improving. 2. May be transferred to the floor once medically stable. 3. Continue with liquid diet at this time until abdominal pain is resolved. Objective - Vital Signs Vital signs: Vital Signs Temp 97.9 F 04/18/19 12:00 Pulse 103 H 04/18/19 12:00 Resp 17 04/18/19 12:00 BP 131/82 04/18/19 12:00 Pulse Ox 100 04/18/19 12:00 Intake & Output 04/17/19 04/18/19 04/18/19 18:59 06:59 18:59 Intake Total 2040 1440 480 Output Total 700 Balance 1340 1440 480 Weight 59 kg Intake: IV 1640 1440 480 Potassium Chloride 10 meq 200 In Water For Injection 1 100ml.bag @ 100 mls/hr IVPB ONCE ONE Rx#: [id number] Sodium Chloride 0.9% 1, 1440 1440 480 000 ml @ 120 mls/hr IV . Q8H20M [facility] Rx#:[id number] Oral 400 Output: Urine 700 Other: # Voids 1 1 1 # Bowel Movements 3 1 1 - Labs CBC & Chem 7: 04/18/19 05:18 04/18/19 05:18 Labs: Abnormal Lab Results - Last 24 Hours (Table) 04/18/19 04/18/19 Range/Units 05:18 05:18 RBC 3.05 L (3.80-5.40) m/uL Hgb 9.9 L D (11.4-16.0) gm/dL Hct 29.9 L (34.0-46.0) % Plt Count 53 L (150-450) k/uL Sodium 134 L (137-145) mmol/L Potassium 2.7 L* (3.5-5.1) mmol/L BUN <2 L (7-17) mg/dL Creatinine 0.34 L (0.52-1.04) mg/dL Calcium 7.4 L (8.4-10.2) mg/dL Microbiology - Last 24 Hours (Table) 04/14/19 23:37 Blood Culture - Preliminary Blood No Growth after 72 hours Assessment and Plan (1) Ileus Current Visit: Yes Status: Acute Code(s): K56.7 - ILEUS, UNSPECIFIED SNOMED Code(s): 740656523 (2) Lung cancer metastatic to bone Current Visit: Yes Status: Acute Priority: High Code(s): C34.90 - MALIGNANT NEOPLASM OF UNSP PART OF UNSP BRONCHUS OR LUNG; C79.51 - SECONDARY MALIGNANT NEOPLASM OF BONE SNOMED Code(s): 97518086 (3) Neutropenia Current Visit: Yes Status: Acute Code(s): D70.9 - NEUTROPENIA, UNSPECIFIED SNOMED Code(s): 345525306 (4) Pancytopenia due to antineoplastic chemotherapy Current Visit: Yes Status: Acute Priority: High Code(s): D61.810 - ANTINEOPLASTIC CHEMOTHERAPY INDUCED PANCYTOPENIA; T45.1X5A - ADVERSE EFFECT OF ANTINEOPLASTIC AND IMMUNOSUP DRUGS, INIT SNOMED Code(s): 267078983173176 (5) C. difficile colitis Current Visit: Yes Status: Acute Code(s): A04.72 - ENTEROCOLITIS D/T CLOSTRIDIUM DIFFICILE, NOT SPCF RECUR SNOMED Code(s): 327833031
--- NOTE | 2019-04-18 14:28 | P.PN ---
Subjective Progress Note Date: 04/18/19 Principal diagnosis: Severe C. diff colitis QT prolongation Abdominal distention- ileus 49 years old female with past medical history of hypothyroidism, hypertension recent lung adenocarcinoma cancer status post radiotherapy and chemotherapy, with metastasis to the spine, back pain and some right tic arthritis, everyday current smoker. She's follow up with Dr. zamora her oncologist. Presents with nausea vomiting and diarrhea and inability to eat or drink. Patient had last chemotherapy on 04/07/2019 as per patient, in 2 days patient started have some nausea and vomiting and sore throat associated with some trouble swallowing, she couldn't eat and drink only a little bit. On admission patient noticed to be hypotensive with blood pressure 96/54, but tachycardic around 100. She saturating 95 on room air. Appropriate. She has pancytopenia with W BCU 1.0, neutrophil count is around 500, hemoglobin 11.2 and platelets 103. She has mild hyponatremia with sodium 133, potassium 2.8. Creatinine 0.8. Lactic acid 1.0. AST 41 and ALT 48. Urinalysis is suspicious for infection. Chest x-ray showing no acute process as per Radiologist. EKG showing normal sinus rhythm at 96, with QTC prolongation at 533. In the hospital patient received pain management, IV fluids, and potassium replacement per protocol. Patient was started on Zosyn and pain management. 04/17/2019 Patient is seen and evaluated in ICU at bedside; patient requesting to be allowed to be off monitor while she takes a shower and requesting a sleeping aid; patient requesting frequency of morphine to be changed every 3 hours if she needs it Vital signs remained stable with a temperature of 98.3, pulse 100, respiration 15 and blood pressure of 114/81 Labs are reviewed showing a white blood count of 1.8, hemoglobin of 8.3 and platelet count of 52; chemical profile with a sodium of 131, potassium 3.5 and B UN/creatinine of 2/0.27 04/18/2019 Patient is seen and evaluated in ICU with family members present at bedside; patient reports feeling much better and improvement in bowel movements compared to yesterday; did try Ambien 10 mg yesterday for sleep; patient relates she had only a couple hours of sleep despite taking Ambien and requesting a change in sleeping pill; we did discuss trying Restoril and patient is agreeable Vital signs remained stable with a temperature of 97.9, pulse 103, respirations 17 and blood pressure 131/82 Lab review shows an improved white blood count of 5.0 from 1.8 yesterday along with a hemoglobin of 9.9 and stable platelet count at 53; potassium is 2.7 which has been supplemented per protocol Patient remains on IV Flagyl; IDs following Objective - Vital Signs Vital signs: Vital Signs Temp 97.9 F 04/18/19 12:00 Pulse 103 H 04/18/19 12:00 Resp 17 04/18/19 12:00 BP 131/82 04/18/19 12:00 Pulse Ox 100 04/18/19 12:00 Intake & Output 04/17/19 04/18/19 04/18/19 18:59 06:59 18:59 Intake Total 2040 1440 480 Output Total 700 Balance 1340 1440 480 Weight 59 kg Intake: IV 1640 1440 480 Potassium Chloride 10 meq 200 In Water For Injection 1 100ml.bag @ 100 mls/hr IVPB ONCE ONE Rx#: [id number] Sodium Chloride 0.9% 1, 1440 1440 480 000 ml @ 120 mls/hr IV . Q8H20M [facility] Rx#:[id number] Oral 400 Output: Urine 700 Other: # Voids 1 1 1 # Bowel Movements 3 1 1 - Exam GENERAL: The patient is alert and oriented x3, not in any acute distress. Well developed, well nourished. HEENT: Pupils are round and equally reacting to light. EOMI. No scleral icterus. No conjunctival pallor. Normocephalic, atraumatic. No pharyngeal erythema. No thyromegaly. CARDIOVASCULAR: S1 and S2 present. No murmurs, rubs, or gallops. PULMONARY: Chest is clear to auscultation, no wheezing or crackles. -ABDOMEN: Soft, nontender, acute generalized abd tenderness more across the umbilicus, normoactive bowel sounds. No palpable organomegaly. MUSCULOSKELETAL: No joint swelling or deformity. EXTREMITIES: No cyanosis, clubbing, or pedal edema. NEUROLOGICAL: Gross neurological examination did not reveal any focal deficits. SKIN: No rashes. - Labs CBC & Chem 7: 04/18/19 05:18 04/18/19 05:18 Labs: Abnormal Lab Results - Last 24 Hours (Table) 04/18/19 04/18/19 Range/Units 05:18 05:18 RBC 3.05 L (3.80-5.40) m/uL Hgb 9.9 L D (11.4-16.0) gm/dL Hct 29.9 L (34.0-46.0) % Plt Count 53 L (150-450) k/uL Sodium 134 L (137-145) mmol/L Potassium 2.7 L* (3.5-5.1) mmol/L BUN <2 L (7-17) mg/dL Creatinine 0.34 L (0.52-1.04) mg/dL Calcium 7.4 L (8.4-10.2) mg/dL Microbiology - Last 24 Hours (Table) 04/14/19 23:37 Blood Culture - Preliminary Blood No Growth after 72 hours Assessment and Plan Assessment: Acute urinary tract infection Pancytopenia, related to her recent chemotherapy. Recurrent nausea vomiting, with diarrhea. Most likely reactive gastroenteritis. Hypokalemia with QTC prolongation Dehydration Sore throat present on admission Metastatic adenocarcinoma of the lung, status post radiotherapy History of sciatica nephritis Nicotine dependence Plan: This is a pleasant 49 years old female who presents with a tract infection. Of her lung cancer, And QT prolongation. Patient will be admitted to the cardiac unit. Continue with IV fluids, antibiotics. Follow-up blood and urine culture. Call cardiology consult, oncology team to evaluate the patient. Check influenza, C. diff and stool, Labs and medication were reviewed.. Continue same treatment. Continue with symptomatic treatment. Resume home medication. Monitor lytes and vitals. DVT and GI prophylaxis. Further recommendations of the clinical course of the patient DVT prophylaxis: Subcutaneous heparin GI Prophylaxis: Pepcid PT/OT: Pending Prognosis is guarded
--- NOTE | 2019-04-18 21:49 | P.PN ---
Subjective Progress Note Date: 04/18/19 Principal diagnosis: Severe C. diff colitis with sepsis Patient is a 49-year-old female presenting to the hospital with acute nausea vomiting diarrhea and abdominal pain in this patient who did have a fever and leukopenia and has been diagnosed with sepsis secondary to acute severe C. diff colitis currently be treated with IV Flagyl and oral vancomycin. On today's evaluation that is 04/18/2019--- the patient has been afebrile denies any rigors or chills the patient is breathing comfortably denies having any chest pain shortness of breath or cough the patient abdominal pain has improved is down to about 5 out of 10, no further nausea or vomiting, has been tole rating a clear liquid diet and did have part 3 stools today no blood or mucus in the stool Objective - Vital Signs Vital signs: Vital Signs Temp 98.1 F 04/18/19 16:00 Pulse 106 H 04/18/19 16:00 Resp 22 04/18/19 16:00 BP 128/90 04/18/19 16:00 Pulse Ox 100 04/18/19 16:00 Intake & Output 04/18/19 04/18/19 04/19/19 06:59 18:59 06:59 Intake Total 1440 1680 Output Total 800 Balance 1440 880 Weight 59 kg Intake: IV 1440 1680 Potassium Chloride 10 meq 600 In Water For Injection 1 100ml.bag @ 100 mls/hr IVPB Q1HR [facility] Rx#: [id number] Sodium Chloride 0.9% 1, 1440 1080 000 ml @ 120 mls/hr IV . Q8H20M [facility] Rx#:[id number] Output: Urine 800 Other: # Voids 1 1 # Bowel Movements 1 1 - Exam GENERAL DESCRIPTION:[ Patient is awake and alert in no distress] HEENT: [Oral mucosa is dry and no pharyngeal erythema] EYES : [No pallor or scleral icterus] RESPIRATORY SYSTEM: [Unlabored breathing clear to auscultation] CARDIA VASCULAR SYSTEM: [S1-S2 regular rate and rhythm no murmur] GI: [Abdominal soft there's mild left lower quadrant tenderness no organomegaly] EXTREMITIES: [No edema feet] - Labs CBC & Chem 7: 04/18/19 05:18 04/18/19 05:18 Labs: Abnormal Lab Results - Last 24 Hours (Table) 04/18/19 04/18/19 Range/Units 05:18 05:18 RBC 3.05 L (3.80-5.40) m/uL Hgb 9.9 L D (11.4-16.0) gm/dL Hct 29.9 L (34.0-46.0) % Plt Count 53 L (150-450) k/uL Sodium 134 L (137-145) mmol/L Potassium 2.7 L* (3.5-5.1) mmol/L BUN <2 L (7-17) mg/dL Creatinine 0.34 L (0.52-1.04) mg/dL Calcium 7.4 L (8.4-10.2) mg/dL Microbiology - Last 24 Hours (Table) 04/14/19 23:37 Blood Culture - Preliminary Blood No Growth after 72 hours Assessment and Plan Assessment: 1-patient and the hospital with sepsis secondary to acute severe C. diff colitis is being her first episode with no other clinical focus of infection patient seemed to be clinically responding to current IV to by therapy in the form of IV Flagyl and oral vancomycin (1) Sepsis Current Visit: Yes Status: Acute Code(s): A41.9 - SEPSIS, UNSPECIFIED ORGANISM SNOMED Code(s): 28981066 (2) C. difficile colitis Current Visit: Yes Status: Acute Code(s): A04.72 - ENTEROCOLITIS D/T CLOSTRIDIUM DIFFICILE, NOT SPCF RECUR SNOMED Code(s): 037506500 Plan: 1-patient will be continued on vancomycin 500 mg by mouth every 6 hours and IV Flagyl 2-advised to increase her yogurt intake Advance diet per surgery Time with Patient: Less than 30
[2019-04-18] MEDS: ZOLPIDEM 10 MG TAB PO PRN (22:37)
[2019-04-18] MEDS: ALPRAZolam 0.25 MG TAB PO PRN (22:37)
[2019-04-19] MEDS: MORPHINE SULFATE 4 MG/ML SYRINGE IVP PRN ×4 (03:07→22:30)
[2019-04-19] MEDS: SODIUM CHLORIDE 0.9% 1,000 ML IV SCH ×3 (03:08→20:02)
--- NOTE | 2019-04-19 03:16 | CT ---
EXAM: CT Head Without Intravenous Contrast CLINICAL HISTORY: Fall, head injury TECHNIQUE: Axial computed tomography images of the head/brain without intravenous contrast. CTDI is 49.1 mGy and DLP is 1078 mGy-cm. This CT exam was performed using one or more of the following dose reduction techniques: automated exposure control, adjustment of the mA and/or kV according to patient size, and/or use of iterative reconstruction technique. COMPARISON: No relevant prior studies available. FINDINGS: Brain: Unremarkable. No hemorrhage. No significant white matter disease. No edema. Ventricles: Unremarkable. No ventriculomegaly. Bones/joints: Unremarkable. No acute fracture. Soft tissues: Hematoma posterior left-sided scalp Sinuses: Mucosal thickening the maxillary sinuses Mastoid air cells: Unremarkable as visualized. No mastoid effusion. IMPRESSION: No intracranial hemorrhage or hematoma. No evidence for skull fracture. Soft tissue hematoma posterior left scalp
[2019-04-19] MEDS: HYDROcodone/APAP 7.5-325MG 1 EACH TAB PO SCH ×4 (05:57→23:29)
[2019-04-19] MEDS: LEVOTHYROXINE 50 MCG TAB PO SCH (05:57)
[2019-04-19] MEDS: MAG HYDROX/AL HYDROX/SIMETH 30 ML, LIDOCAINE VISCOUS 30 ML, diphenhydrAMINE ELIXIR 75 M... PO SCH ×20 (05:59→23:51)
[2019-04-19] MEDS: CHERRY FLAVOR 60 ML BOTTLE PO SCH ×4 (05:59→23:52)
[2019-04-19] MEDS: VANCOMYCIN ORAL SOLUTION 250 MG/5 ML BOTTLE PO SCH ×4 (05:59→23:51)
[2019-04-19] MEDS: SALT AND SODA MOUTHWASH 1,000 ML PO SCH ×5 (06:03→23:53)
[2019-04-19 06:21] LABS: HCT 25.6 % (34.0-46.0); HGB 8.5 gm/dL (11.4-16.0); MCH 32.2 pg (25.0-35.0); MCHC 33.3 g/dL (31.0-37.0); MCV 96.8 fL (80.0-100.0); Mean Platelet Volume 8.4; RBC 2.64 m/uL (3.80-5.40); RDW 14.1 % (11.5-15.5); WBC 10.2 k/uL (3.8-10.6)
[2019-04-19 06:22] LABS: Platelet Count 54 k/uL (150-450)
[2019-04-19 06:24] LABS: Anion Gap 6 mmol/L; Blood Urea Nitrogen <2 mg/dL (7-17); Calcium 7.5 mg/dL (8.4-10.2); Carbon Dioxide 24 mmol/L (22-30); Chloride 103 mmol/L (98-107); Glucose 88 mg/dL (74-99); Potassium 2.8 mmol/L (3.5-5.1); Sodium 133 mmol/L (137-145)
[2019-04-19 06:43] LABS: Band Neutrophils % 15 %; Lymphocytes # (M) 0.31 k/uL (1.0-4.8); Monocytes # (M) 1.73 k/uL (0-1.0); Myelocytes % 1 %; Neutrophils % (M) 65 %; Nucleated Red Blood Cells 0 /100 WBC (0-0); Total Cells Counted 200
[2019-04-19] MEDS: DRONABINOL 2.5 MG CAP PO SCH ×2 (08:42→17:32)
[2019-04-19] MEDS: metroNIDAZOLE-NS PMX 500 MG in SALINE 1 100ML.BAG IVPB SCH ×2 (08:42→16:26)
[2019-04-19] MEDS: PANTOPRAZOLE 40 MG TABLET PO SCH (08:42)
[2019-04-19] MEDS: FOLIC ACID 1 MG TAB PO SCH (08:43)
[2019-04-19] MEDS: CALCIUM CARB-VIT D 500MG-200UN 1 EACH TAB PO SCH (08:43)
--- NOTE | 2019-04-19 10:30 | P.PN ---
<Gay Langley A - Last Filed: 04/19/19 12:56> Subjective Progress Note Date: 04/19/19 CHIEF COMPLAINT: abdominal pain HISTORY OF PRESENT ILLNESS: Patient examined at the bedside in the ICU. She reports her abdominal pain has improved and has only minimal right sided discomfort. Bloating has improved. Diarrhea improving. She reports loose BM this morning. Tolerating clear liquid diet and states her mouth sores have improved and she is having less discomfort swallowing. PHYSICAL EXAM: VITAL SIGNS: Reviewed. GENERAL: Well-developed in no acute distress. HEENT: No sclera icterus. Extraocular movements grossly intact. Moist buccal mucosa with evidence of sores, improving. Head is atraumatic, normocephalic. ABDOMEN: Soft. Distention and bloating improved. Minimal tenderness right side. Positive bowel sounds. NEUROLOGIC: Alert and oriented. Cranial nerves II through XII grossly intact. ASSESSMENT: 1. Abdominal pain, nausea, vomiting, resolved 2. Clostridium difficile colitis 3. Dysphagia, improving 4. Ileus per CT scan PLAN: 1. Continue antibiotics. ID following 2. Advance diet to full liquid 3. Replace potassium and magnesium per protocol Nurse practitioner note has been reviewed by physician. Signing provider agrees with the documented findings, assessment, and plan of care. Objective - Vital Signs Vital signs: Vital Signs Temp 97.9 F 04/19/19 08:00 Pulse 101 H 04/19/19 08:00 Resp 16 04/19/19 08:00 BP 131/83 04/19/19 08:00 Pulse Ox 96 04/19/19 08:00 Intake & Output 04/18/19 04/19/19 04/19/19 18:59 06:59 18:59 Intake Total 1680 1060 580 Output Total 800 Balance 880 1060 580 Weight 57.4 kg Intake: IV 1680 1060 580 Potassium Chloride 10 meq 600 In Water For Injection 1 100ml.bag @ 100 mls/hr IVPB Q1HR [facility] Rx#: [id number] Sodium Chloride 0.9% 1, 1080 960 480 000 ml @ 120 mls/hr IV . Q8H20M [facility] Rx#:[id number] metroNIDAZOLE-NS PMX 500 100 100 mg In Saline 1 100ml.bag @ 100 mls/hr IVPB Q8HR [facility] Rx#:[id number] Output: Urine 800 Other: Voiding Method Bedside Commode # Voids 1 1 1 # Bowel Movements 1 1 - Labs CBC & Chem 7: 04/19/19 05:22 04/19/19 05:22 Labs: Abnormal Lab Results - Last 24 Hours (Table) 04/19/19 04/19/19 Range/Units 05:22 05:22 RBC 2.64 L (3.80-5.40) m/uL Hgb 8.5 L (11.4-16.0) gm/dL Hct 25.6 L (34.0-46.0) % Plt Count 54 L (150-450) k/uL Neutrophils # (Manual) 8.10 H (1.3-7.7) k/uL Lymphocytes # (Manual) 0.31 L (1.0-4.8) k/uL Monocytes # (Manual) 1.73 H (0-1.0) k/uL Myelocytes # (Manual) 0.10 H (0) k/uL Sodium 133 L (137-145) mmol/L Potassium 2.8 L (3.5-5.1) mmol/L BUN <2 L (7-17) mg/dL Creatinine 0.32 L (0.52-1.04) mg/dL Calcium 7.5 L (8.4-10.2) mg/dL Microbiology - Last 24 Hours (Table) 04/14/19 23:37 Blood Culture - Preliminary Blood No Growth after 96 hours <Matt Lopez - Last Filed: 04/19/19 13:25> Subjective As above. Patient doing better. Pain much improved. Diarrhea improved as well. She is tolerating her diet. Continue antibiotics. Objective - Vital Signs Vital signs: Vital Signs Temp 98.0 F 04/19/19 11:37 Pulse 97 04/19/19 11:37 Resp 14 04/19/19 11:37 BP 128/82 04/19/19 11:37 Pulse Ox 98 04/19/19 11:37 Intake & Output 04/18/19 04/19/19 04/19/19 18:59 06:59 18:59 Intake Total 1680 1060 1060 Output Total 800 Balance 880 1060 1060 Weight 57.4 kg Intake: IV 1680 1060 1060 Potassium Chloride 10 meq 600 In Water For Injection 1 100ml.bag @ 100 mls/hr IVPB Q1HR [facility] Rx#: [id number] Sodium Chloride 0.9% 1, 1080 960 960 000 ml @ 120 mls/hr IV . Q8H20M [facility] Rx#:[id number] metroNIDAZOLE-NS PMX 500 100 100 mg In Saline 1 100ml.bag @ 100 mls/hr IVPB Q8HR [facility] Rx#:[id number] Output: Urine 800 Other: Voiding Method Bedside Commode Bedside Commode # Voids 1 1 1 # Bowel Movements 1 1 - Labs CBC & Chem 7: 04/19/19 05:22 04/19/19 05:22 Labs: Abnormal Lab Results - Last 24 Hours (Table) 04/19/19 04/19/19 04/19/19 Range/Units 05:22 05:22 05:22 RBC 2.64 L (3.80-5.40) m/uL Hgb 8.5 L (11.4-16.0) gm/dL Hct 25.6 L (34.0-46.0) % Plt Count 54 L (150-450) k/uL Neutrophils # (Manual) 8.10 H (1.3-7.7) k/uL Lymphocytes # (Manual) 0.31 L (1.0-4.8) k/uL Monocytes # (Manual) 1.73 H (0-1.0) k/uL Myelocytes # (Manual) 0.10 H (0) k/uL Sodium 133 L (137-145) mmol/L Potassium 2.8 L (3.5-5.1) mmol/L BUN <2 L (7-17) mg/dL Creatinine 0.32 L (0.52-1.04) mg/dL Calcium 7.5 L (8.4-10.2) mg/dL Magnesium 1.4 L (1.6-2.3) mg/dL Microbiology - Last 24 Hours (Table) 04/14/19 23:37 Blood Culture - Preliminary Blood No Growth after 96 hours
[2019-04-19] MEDS ORDERED: POTASSIUM CHLORIDE ER 20 MEQ TAB.ER PO STA (11:45)
[2019-04-19] MEDS: POTASSIUM CHLORIDE ER 20 MEQ TAB.ER PO SCH ×4 (12:56→23:36)
--- NOTE | 2019-04-19 13:39 | P.PN ---
Subjective Patient is a 49-year-old female presenting to the hospital with acute nausea vomiting diarrhea and abdominal pain in this patient who did have a fever and leukopenia and has been diagnosed with sepsis secondary to acute severe C. diff colitis currently be treated with IV Flagyl and oral vancomycin. On today's evaluation that is 04/18/2019--- the patient has been afebrile denies any rigors or chills the patient is breathing comfortably denies having any chest pain shortness of breath or cough the patient abdominal pain has improved is down to about 5 out of 10, no further nausea or vomiting, has been tolerating a clear liquid diet and did have part 3 stools today no blood or mucus in the stool 04/19/2019 Patient did not have any bowel movement today patient is clinically doing well will be transferred out of ICU patient is still hyponatremic continue with IV fluids today we'll repeat basic metabolic profile tomorrow if that improves patient will be discharged tomorrow. Constitutional: Denied any fatigue denied any fever. Cardio vascular: denied any chest pain, palpitations Gastrointestinal denied any nausea vomiting Pulmonary: Denied any shortness of breath cough Neurologic denied any new focal deficits All inpatient medications were reviewed and appropriate changes in these medications as dictated in the interval history and assessment and plan. Objective - Vital Signs Vital signs: Vital Signs Temp 98.0 F 04/19/19 11:37 Pulse 97 04/19/19 11:37 Resp 14 04/19/19 11:37 BP 128/82 04/19/19 11:37 Pulse Ox 98 04/19/19 11:37 Intake & Output 04/18/19 04/19/19 04/19/19 18:59 06:59 18:59 Intake Total 1680 1060 1060 Output Total 800 Balance 880 1060 1060 Weight 57.4 kg Intake: IV 1680 1060 1060 Potassium Chloride 10 meq 600 In Water For Injection 1 100ml.bag @ 100 mls/hr IVPB Q1HR G[facility] Rx#: [id number] Sodium Chloride 0.9% 1, 1080 960 960 000 ml @ 120 mls/hr IV . Q8H20M GUA[facility]KO Rx#:[id number] metroNIDAZOLE-NS PMX 500 100 100 mg In Saline 1 100ml.bag @ 100 mls/hr IVPB Q8HR GUA[facility]KO Rx#:[id number] Output: Urine 800 Other: Voiding Method Bedside Commode Bedside Commode # Voids 1 1 1 # Bowel Movements 1 1 - Exam PHYSICAL EXAMINATION: GENERAL: The patient is alert and oriented x3, not in any acute distress. Well developed, well nourished. HEENT: Pupils are round and equally reacting to light. EOMI. No scleral icterus. No conjunctival pallor. Normocephalic, atraumatic. No pharyngeal erythema. No thyromegaly. CARDIOVASCULAR: S1 and S2 present. No murmurs, rubs, or gallops. PULMONARY: Chest is clear to auscultation, no wheezing or crackles. ABDOMEN: Soft, nontender, nondistended, normoactive bowel sounds. No palpable organomegaly. MUSCULOSKELETAL: No joint swelling or deformity. EXTREMITIES: No cyanosis, clubbing, or pedal edema. NEUROLOGICAL: Gross neurological examination did not reveal any focal deficits. SKIN: No rashes. - Labs CBC & Chem 7: 04/19/19 05:22 04/19/19 05:22 Labs: Abnormal Lab Results - Last 24 Hours (Table) 04/19/19 04/19/19 04/19/19 Range/Units 05:22 05:22 05:22 RBC 2.64 L (3.80-5.40) m/uL Hgb 8.5 L (11.4-16.0) gm/dL Hct 25.6 L (34.0-46.0) % Plt Count 54 L (150-450) k/uL Neutrophils # (Manual) 8.10 H (1.3-7.7) k/uL Lymphocytes # (Manual) 0.31 L (1.0-4.8) k/uL Monocytes # (Manual) 1.73 H (0-1.0) k/uL Myelocytes # (Manual) 0.10 H (0) k/uL Sodium 133 L (137-145) mmol/L Potassium 2.8 L (3.5-5.1) mmol/L BUN <2 L (7-17) mg/dL Creatinine 0.32 L (0.52-1.04) mg/dL Calcium 7.5 L (8.4-10.2) mg/dL Magnesium 1.4 L (1.6-2.3) mg/dL Microbiology - Last 24 Hours (Table) 04/14/19 23:37 Blood Culture - Preliminary Blood No Growth after 96 hours Assessment and Plan Plan: -Sepsis and at a C. diff colitis which is improving at this time -hyponatremia hypovolemic hyponatremia continue with IV fluids -Severe hypokalemia potassium will be replaced and this is secondary to diarrhea and the natriuretic hypokalemia -Hypomagnesemia that will be replaced as well -Hypothyroidism -Adenocarcinoma of the lung for which patient received chemotherapy about 10 days ago. And will continue with chemotherapy after discharge. Next and- anxiety disorder. -Nicotine abuse
[2019-04-19] MEDS: MAGNESIUM SULFATE-D5W PMX 1 GM in DEXTROSE/WATER 1 100ML.BAG IVPB SCH ×3 (14:30→19:49)
--- NOTE | 2019-04-19 18:14 | P.PN ---
Subjective Progress Note Date: 04/19/19 Principal diagnosis: Severe C. diff colitis with sepsis Patient is a 49-year-old female presenting to the hospital with acute nausea vomiting diarrhea and abdominal pain in this patient who did have a fever and leukopenia and has been diagnosed with sepsis secondary to acute severe C. diff colitis currently be treated with IV Flagyl and oral vancomycin. On today's evaluation that is 04/19/2019--- the patient remains to be afebrile ,, the patient the patient is breathing comfortably denies having any chest pain shortness of breath or cough the patient abdominal pain has improved , no further nausea or vomiting, has been tolerating her diet and did have 2 bowel movements and not as runny as they used to be Objective - Vital Signs Vital signs: Vital Signs Temp 98.7 F 04/19/19 16:00 Pulse 99 04/19/19 16:00 Resp 16 04/19/19 16:00 BP 131/85 04/19/19 16:00 Pulse Ox 96 04/19/19 16:00 Intake & Output 04/18/19 04/19/19 04/19/19 18:59 06:59 18:59 Intake Total 1680 1060 1640 Output Total 800 Balance 880 1060 1640 Weight 57.4 kg Intake: IV 1680 1060 1640 Potassium Chloride 10 meq 600 In Water For Injection 1 100ml.bag @ 100 mls/hr IVPB Q1HR [facility] Rx#: [id number] Sodium Chloride 0.9% 1, 7859 590 2287 000 ml @ 120 mls/hr IV . Q8H20M [facility] Rx#:[id number] metroNIDAZOLE-NS PMX 500 100 200 mg In Saline 1 100ml.bag @ 100 mls/hr IVPB Q8HR G[facility] Rx#:[id number] Output: Urine 800 Other: Voiding Method Bedside Commode Bedside Commode # Voids 1 1 1 # Bowel Movements 1 1 - Exam GENERAL DESCRIPTION:[ Patient is awake and alert in no distress] HEENT: [Oral mucosa is dry and no pharyngeal erythema] EYES : [No pallor or scleral icterus] RESPIRATORY SYSTEM: [Unlabored breathing clear to auscultation] CARDIA VASCULAR SYSTEM: [S1-S2 regular rate and rhythm no murmur] GI: [Abdominal soft there's mild left lower quadrant tenderness no organomegaly] EXTREMITIES: [No edema feet] - Labs CBC & Chem 7: 04/19/19 05:22 04/19/19 05:22 Labs: Abnormal Lab Results - Last 24 Hours (Table) 04/19/19 04/19/19 04/19/19 Range/Units 05:22 05:22 05:22 RBC 2.64 L (3.80-5.40) m/uL Hgb 8.5 L (11.4-16.0) gm/dL Hct 25.6 L (34.0-46.0) % Plt Count 54 L (150-450) k/uL Neutrophils # (Manual) 8.10 H (1.3-7.7) k/uL Lymphocytes # (Manual) 0.31 L (1.0-4.8) k/uL Monocytes # (Manual) 1.73 H (0-1.0) k/uL Myelocytes # (Manual) 0.10 H (0) k/uL Sodium 133 L (137-145) mmol/L Potassium 2.8 L (3.5-5.1) mmol/L BUN <2 L (7-17) mg/dL Creatinine 0.32 L (0.52-1.04) mg/dL Calcium 7.5 L (8.4-10.2) mg/dL Magnesium 1.4 L (1.6-2.3) mg/dL Microbiology - Last 24 Hours (Table) 04/14/19 23:37 Blood Culture - Preliminary Blood No Growth after 96 hours Assessment and Plan Assessment: 1-patient and the hospital with sepsis secondary to acute severe C. diff colitis is being her first episode with no other clinical focus of infection patient seemed to be clinically responding to current antibiotic therapy in the form of IV Flagyl and oral vancomycin (1) Sepsis Current Visit: Yes Status: Acute Code(s): A41.9 - SEPSIS, UNSPECIFIED ORGANISM SNOMED Code(s): 18975645 (2) C. difficile colitis Current Visit: Yes Status: Acute Code(s): A04.72 - ENTEROCOLITIS D/T CLOSTRI DIUM DIFFICILE, NOT SPCF RECUR SNOMED Code(s): 041347184 Plan: 1-patient will be continued on vancomycin 500 mg by mouth every 6 hours and discontinue IV Flagyl 2-and Questran 4 g by mouth twice a day 3- to continue with yogurt intake
[2019-04-19] MEDS: CHOLESTYRAMINE (WITH SUGAR) 4 GM PACKET PO SCH (19:55)
[2019-04-20] MEDS: MORPHINE SULFATE 4 MG/ML SYRINGE IVP PRN (02:37)
[2019-04-20] MEDS: CHERRY FLAVOR 60 ML BOTTLE PO SCH ×2 (05:48→11:49)
[2019-04-20] MEDS: VANCOMYCIN ORAL SOLUTION 250 MG/5 ML BOTTLE PO SCH ×2 (05:48→12:00)
[2019-04-20] MEDS: HYDROcodone/APAP 7.5-325MG 1 EACH TAB PO SCH ×2 (05:48→11:55)
[2019-04-20] MEDS: SALT AND SODA MOUTHWASH 1,000 ML PO SCH ×2 (05:50→10:58)
[2019-04-20] MEDS: MAG HYDROX/AL HYDROX/SIMETH 30 ML, LIDOCAINE VISCOUS 30 ML, diphenhydrAMINE ELIXIR 75 M... PO SCH ×8 (05:50→10:59)
[2019-04-20] MEDS: LEVOTHYROXINE 50 MCG TAB PO SCH (05:53)
[2019-04-20] MEDS: SODIUM CHLORIDE 0.9% 1,000 ML IV SCH (05:55)
--- NOTE | 2019-04-20 08:06 | CDI ---
Documentation Clarification Form Date: 04/16/2019 2:03:00 PM From: Yeni [email or web address], CCDS Admit Date: 04/15/2019 12:12:00 AM Patient Name: Soo Pate Visit Number: [id number] Discharge Date: ATTENTION: The Clinical Documentation Specialists (CDI) and [facility] Coding Staff appreciate your assistance in clarifying documentation. Please respond to the clarification below the line at the bottom and electronically sign. The CDI & [facility] Coding staff will review the response and follow-up if needed. Please note: Queries are made part of the Legal Health Record. If you have any questions, please contact the author of this message via ITS. Dr. Kemal Ponce: Per the 04/15 Oncology Consult: "On arrival she had an EKG revealing QT prolongation, labs showing hypercalcemia. 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 LAB: K: 2.8*, 3.0*, 2.6, 2.6, 3.5; Calcium: 8.1*, 7.0*, 6.8* Clinical indicators: Presented with mucositis, Pancytopenia & "Hypokalemia", Anorexia, Intractable nausea & vomiting. Treatment: IV Morphine, IV Zofran, IV fluid bolus, IV Kcl, IV MagSulf, IV Narcan, IV Zosyn. Clinical significance of diagnostic testing and treatment cannot be assumed or coded without physician documentation of significance if any. *Thank you for responding to this query, Please also clarify the following documentation per the abnormal laboratory values: Hypercalcemia Hypocalcemia Unable to determine Other, please specify (Last Revision: August 2017) It was mis-spoken as hypercalcemia in HPI but, it was correctly documented in the Impression and plan as hypokalemia. This was noted in an addendum MTDD
[2019-04-20 08:37] LABS: HCT 27.7 % (34.0-46.0); MCH 32.2 pg (25.0-35.0); MCHC 32.6 g/dL (31.0-37.0); MCV 98.6 fL (80.0-100.0); Mean Platelet Volume 7.8; RBC 2.81 m/uL (3.80-5.40); RDW 13.8 % (11.5-15.5); WBC 7.3 k/uL (3.8-10.6)
[2019-04-20 08:48] LABS: Platelet Count 62 k/uL (150-450)
[2019-04-20 08:51] LABS: Anion Gap 4 mmol/L; Blood Urea Nitrogen <2 mg/dL (7-17); Calcium 8.4 mg/dL (8.4-10.2); Carbon Dioxide 27 mmol/L (22-30); Chloride 106 mmol/L (98-107); Glucose 113 mg/dL (74-99); Magnesium 1.3 mg/dL (1.6-2.3); Potassium 4.5 mmol/L (3.5-5.1); Sodium 137 mmol/L (137-145)
[2019-04-20] MEDS ORDERED: Magnesium Replacement Protocol 1 EACH MISC MISCELLANE PRN (09:08)
[2019-04-20] MEDS ORDERED: SIMETHICONE 40 MG/0.6 ML DROPS 2,000 MG/30 ML BOTTLE PO PRN (09:08)
[2019-04-20] MEDS: MAGNESIUM SULFATE-D5W PMX 1 GM in DEXTROSE/WATER 1 100ML.BAG IVPB SCH ×3 (09:24→11:54)
[2019-04-20] MEDS: FOLIC ACID 1 MG TAB PO SCH (09:25)
[2019-04-20] MEDS: CHOLESTYRAMINE (WITH SUGAR) 4 GM PACKET PO SCH (09:25)
[2019-04-20] MEDS: DRONABINOL 2.5 MG CAP PO SCH (09:26)
[2019-04-20] MEDS: PANTOPRAZOLE 40 MG TABLET PO SCH ×2 (09:26→09:30)
[2019-04-20] MEDS: CALCIUM CARB-VIT D 500MG-200UN 1 EACH TAB PO SCH (09:26)
--- NOTE | 2019-04-20 11:01 | P.PN ---
Subjective Progress Note Date: 04/20/19 CHIEF COMPLAINT: abdominal pain HISTORY OF PRESENT ILLNESS: Patient examined at the bedside. Patient denies abdominal pain. Tolerating full liquid diet. No nausea or vomiting. Reports bowel movement this AM. Potassium 4.5. Magnesium 1.3. PHYSICAL EXAM: VITAL SIGNS: Reviewed. GENERAL: Well-developed in no acute distress. HEENT: No sclera icterus. Extraocular movements grossly intact. Moist buccal mucosa. Head is atraumatic, normocephalic. ABDOMEN: Soft. Nondistended. Nontender. Positive bowel sounds. NEUROLOGIC: Alert and oriented. Cranial nerves II through XII grossly intact. ASSESSMENT: 1. Abdominal pain, nausea, vomiting, resolved 2. Clostridium difficile colitis 3. Dysphagia, improving 4. Ileus per CT scan PLAN: 1. Continue antibiotics. ID following 2. Advance diet as tolerated 3. Replace magnesium per protocol 4. We will sign off. Please reconsult if needed. Nurse practitioner note has been reviewed by physician. Signing provider agrees with the documented findings, assessment, and plan of care. Objective - Vital Signs Vital signs: Vital Signs Temp 98.6 F 04/20/19 04:10 Pulse 104 H 04/20/19 04:10 Resp 16 04/20/19 04:10 BP 136/87 04/20/19 04:10 Pulse Ox 94 L 04/20/19 04:10 Intake & Output 04/19/19 04/20/19 04/20/19 18:59 06:59 18:59 Intake Total 1740 1870 Balance 1740 1870 Intake: IV 1640 1180 Sodium Chloride 0.9% 1, 1440 1080 000 ml @ 120 mls/hr IV . Q8H20M [facility] Rx#:[id number] metroNIDAZOLE-NS PMX 500 200 100 mg In Saline 1 100ml.bag @ 100 mls/hr IVPB Q8HR [facility] Rx#:[id number] Intake, IV Titration 100 Amount Magnesium Sulfate-D5w Pmx 100 1 gm In Dextrose/Water 1 100ml.bag @ 100 mls/hr IVPB Q1H [facility] Rx#: [id number] Oral 100 590 Other: Voiding Method Bedside Commode Toilet Toilet # Voids 1 1 - Labs CBC & Chem 7: 04/20/19 08:13 04/20/19 08:13 Labs: Abnormal Lab Results - Last 24 Hours (Table) 04/19/19 04/19/19 04/20/19 Range/Units 05:22 19:56 08:13 RBC 2.81 L (3.80-5.40) m/uL Hgb 9.0 L (11.4-16.0) gm/dL Hct 27.7 L (34.0-46.0) % Plt Count 62 L (150-450) k/uL Potassium 3.3 L (3.5-5.1) mmol/L BUN (7-17) mg/dL Creatinine (0.52-1.04) mg/dL Glucose (74-99) mg/dL Magnesium 1.4 L (1.6-2.3) mg/dL 04/20/19 Range/Units 08:13 RBC (3.80-5.40) m/uL Hgb (11.4-16.0) gm/dL Hct (34.0-46.0) % Plt Count (150-450) k/uL Potassium (3.5-5.1) mmol/L BUN <2 L (7-17) mg/dL Creatinine 0.37 L (0.52-1.04) mg/dL Glucose 113 H (74-99) mg/dL Magnesium 1.3 L (1.6-2.3) mg/dL Microbiology - Last 24 Hours (Table) 04/14/19 23:37 Blood Culture - Preliminary Blood No Growth after 120 hours
--- NOTE | 2019-04-20 11:59 | P.DS ---
Providers Date of admission: 04/15/19 00:12 Attending physician: Ger Last Consults: 04/14/19 23:23 Consult Physician Routine Consulting Provider: [facility] Consult Reason/Comments: hypokalemia with QT prolongation Do you want consulting provider notified?: Yes 04/14/19 23:24 Consult Physician Routine Consulting Provider: Sen Maher Consult Reason/Comments: adenocarcinoma, hypokalemia, NVD, neutropenia, Do you want consulting provider notified?: Yes 04/16/19 06:23 Consult Physician Urgent Consulting Provider: Samanta Baires Consult Reason/Comments: c diff and severe leukopenia Do you want consulting provider notified?: Yes 04/16/19 07:37 Consult Physician Urgent Consulting Provider: Matt Lopez Consult Reason/Comments: abd. pain Do you want consulting provider notified?: Yes Primary care physician: [facility] Course: Patient is a 49-year-old female presenting to the hospital with acute nausea vomiting diarrhea and abdominal pain in this patient who did have a fever and leukopenia and has been diagnosed with sepsis secondary to acute severe C. diff colitis currently be treated with IV Flagyl and oral vancomycin. On today's evaluation that is 04/18/2019--- the patient has been afebrile denies any rigors or chills the patient is breathing comfortably denies having any chest pain shortness of breath or cough the patient abdominal pain has improved is down to about 5 out of 10, no further nausea or vomiting, has been tolerating a clear liquid diet and did have part 3 stools today no blood or mucus in the stool 04/19/2019 Patient did not have any bowel movement today patient is clinically doing well will be transferred out of ICU patient is still hyponatremic continue with IV fluids today we'll repeat basic metabolic profile tomorrow if that improves patient will be discharged tomorrow. 04/20/2019 Patient is clinically doing well no more diarrhea patient will be discharged today on Questran in the oral vancomycin. PHYSICAL EXAMINATION: GENERAL: The patient is alert and oriented x3, not in any acute distress. Well developed, well nourished. HEENT: Pupils are round and equally reacting to light. EOMI. No scleral icterus. No conjunctival pallor. Normocephalic, atraumatic. No pharyngeal erythema. No thyromegaly. CARDIOVASCULAR: S1 and S2 present. No murmurs, rubs, or gallops. PULMONARY: Chest is clear to auscultation, no wheezing or crackles. ABDOMEN: Soft, nontender, nondistended, normoactive bowel sounds. No palpable organomegaly. MUSCULOSKELETAL: No joint swelling or deformity. EXTREMITIES: No cyanosis, clubbing, or pedal edema. NEUROLOGICAL: Gross neurological examination did not reveal any focal deficits. SKIN: No rashes. Assessment and Plan Plan: -Sepsis and at a C. diff colitis -hyponatremia hypovolemic hyponatremia improved with IV fluids -Severe hypokalemia potassium will be replaced and this is secondary to diarrhea and the natriuretic hypokalemia -Hypomagnesemia that will be replaced as well -Hypothyroidism -Adenocarcinoma of the lung for which patient received chemotherapy about 10 days ago. And will continue with chemotherapy after discharge. anxiety disorder. -Nicotine abuse Patient Condition at Discharge: Serious Plan - Discharge Summary Discharge Rx Participant: Yes New Discharge Prescriptions: New Famotidine 40 mg PO BID #60 tab Cholestyramine (with Sugar) [Questran Packet] 4 gm PO BID@1000,2100 #20 packet Vancomycin Oral Solution 250 mg PO Q6HR #10 day Continue Levothyroxine Sodium [Synthroid] 50 mcg PO DAILY ALPRAZolam [Xanax] 0.25 mg PO DAILY PRN PRN Reason: Anxiety Ibuprofen [Motrin] 800 mg PO TID PRN PRN Reason: Pain HYDROcodone/APAP 7.5-325MG [Rock 7.5-325] 1 tab PO Q6H valACYclovir HCL [Valacyclovir] 1,000 mg PO Q12HR Folic Acid 1 mg PO DAILY Calcium Carbonate/Vitamin D3 [Calcium 600-Vit D3 200 Tablet] 2 tab PO DAILY fentaNYL 25MCG/HR PATCH [Duragesic 25MCG/HR] 1 patch TRANSDERM Q72H Discontinued Diltiazem HCl [Diltiazem 24Hr ER] 180 mg PO DAILY Omeprazole [PriLOSEC] Discharge Medication List ALPRAZolam [Xanax] 0.25 mg PO DAILY PRN 02/18/19 [History] Ibuprofen [Motrin] 800 mg PO TID PRN 02/18/19 [History] Levothyroxine Sodium [Synthroid] 50 mcg PO DAILY 02/18/19 [History] HYDROcodone/APAP 7.5-325MG [Rock 7.5-325] 1 tab PO Q6H 03/02/19 [History] Calcium Carbonate/Vitamin D3 [Calcium 600-Vit D3 200 Tablet] 2 tab PO DAILY 04/14/19 [History] Folic Acid 1 mg PO DAILY 04/14/19 [History] fentaNYL 25MCG/HR PATCH [Duragesic 25MCG/HR] 1 patch TRANSDERM Q72H 04/14/19 [History] valACYclovir HCL [Valacyclovir] 1,000 mg PO Q12HR 04/14/19 [History] Famotidine 40 mg PO BID #60 tab 04/15/19 [Rx] Cholestyramine (with Sugar) [Questran Packet] 4 gm PO BID@1000,2100 #20 packet 04/20/19 [Rx] Vancomycin Oral Solution 250 mg PO Q6HR #10 day 04/20/19 [Rx] Follow up Appointment(s)/Referral(s): [facility], [NON-STAFF] - 1-[address] [facility], [REFERRING] - As Needed Sen Maher MD [Primary Care Provider] - 04/22/19 3:00 pm Patient Instructions/Handouts: Famotidine (By mouth), Cholestyramine (By mouth), Vancomycin (By mouth), Sepsis (GEN), C Diff (Clostridium Difficile) Infection (DC) Activity/Diet/Wound Care/Special Instructions: Patient cannot continue on PPI in the outpatient setting-she is on immunotherapy with Pembrolizumab. Famotidine 40 mg by mouth twice a day has been ordered and sent to her preferred [facility] pharmacy documented in the chart. (Robbin) Discharge Disposition: HOME SELF-CARE
[2019-04-20 12:10] VITALS: BP 132/85; PULSE 92; RESP 20; TEMP 98.7
[2019-04-20 14:10] VITALS: BMI 21.4
--- NOTE | 2019-04-20 16:17 | PN ---
PROGRESS NOTE DATE OF SERVICE: 04/20/2019. REASON FOR FOLLOWUP: C difficile colitis. INTERVAL HISTORY: The patient is currently afebrile. The patient has been breathing comfortably. Denies any abdominal pain. Patient's diarrhea has improved. Stool slightly forming up. No nausea or vomiting. PHYSICAL EXAMINATION: Blood pressure 132/85 with a pulse of 92, temperature 98.7, she is 94% on room air. General description is a middle aged female lying in bed in no distress. Respiratory system: Unlabored breathing. Clear to auscultation anteriorly. Heart S1, S2. Regular rate and rhythm. Abdomen soft. No tenderness. LABS: Hemoglobin 9, white count 7.3, BUN of 2, creatinine 0.37. DIAGNOSTIC IMPRESSION AND PLAN: Patient with severe C difficile colitis. The patient seemed to have shown clinical improvement. Should be able to finish therapy with oral vancomycin 250 p.o. q6 hours for another 10 days with Questran if needed. Increase yogurt and Probiotic intake. Close outpatient follow up in 1 week. All questions and concerns were answered. MMODL / IJN: [id number] /
--- NOTE | 2019-04-20 16:40 | P.PN ---
Subjective Progress Note Date: 04/20/19 Principal diagnosis: N,V,D leading to Hypokalemia and cardiac arrhythmia. Metastatic non-small cell lung cancer. In follow-up today patient states doing much better, nausea has resolved, no recent vomiting, she is tolerating full liquids. Her breathing is comfortable, no abdominal pain or distention, diarrhea is slowing in number of episodes with firmer consistency being noted. No black or bloody stools, pain with bowel movements. Her potassium has been supplemented and is normal at 4.5 today. She continues on antibiotics for Clostridium difficile infection. Objective - Vital Signs Vital signs: Vital Signs Temp 98.7 F 04/20/19 12:08 Pulse 92 04/20/19 12:08 Resp 20 04/20/19 12:08 BP 132/85 04/20/19 12:08 Pulse Ox 94 L 04/20/19 12:08 Intake & Output 04/19/19 04/20/19 04/20/19 18:59 06:59 18:59 Intake Total 1740 1870 Balance 1740 1870 Weight 56.654 kg Intake: IV 1640 1180 Sodium Chloride 0.9% 1, 1440 1080 000 ml @ 120 mls/hr IV . Q8H20M [facility] Rx#:[id number] metroNIDAZOLE-NS PMX 500 200 100 mg In Saline 1 100ml.bag @ 100 mls/hr IVPB Q8HR G[facility] Rx#:[id number] Intake, IV Titration 100 Amount Magnesium Sulfate-D5w Pmx 100 1 gm In Dextrose/Water 1 100ml.bag @ 100 mls/hr IVPB Q1H GUA[facility]KO Rx#: [id number] Oral 100 590 Other: Voiding Method Bedside Commode Toilet Toilet # Voids 1 1 - Constitutional General appearance: Present: average body habitus, cooperative, no acute distress - EENT Eyes: Present: anicteric sclerae, EOMI, normal appearance ENT: Present: hearing grossly normal, normal oropharynx - Respiratory Respiratory: bilateral: CTA - Cardiovascular Rhythm: regular Heart sounds: normal: S1, S2 Abnormal Heart Sounds: Absent: systolic murmur, diastolic murmur, rub, S3 Gallop, S4 Gallop, click, other - Peripheral edema leg Peripheral Edema: bilateral: None - Gastrointestinal General gastrointestinal: Present: normal bowel sounds, soft, tenderness. Absent: absent bowel sounds, decreased bowel sounds, distended, hepatomegaly, hyperactive bowel sounds, organomegaly, rigid, scaphoid, splenomegaly, umbilical hernia, ventral hernia - Neurologic Neurologic: Present: CNII-XII intact - Musculoskeletal Musculoskeletal: Present: strength equal bilaterally - Psychiatric Psychiatric: Present: A&O x's 3, appropriate affect, intact judgment & insight - Labs CBC & Chem 7: 04/20/19 08:13 04/20/19 08:13 Labs: Abnormal Lab Results - Last 24 Hours (Table) 04/19/19 04/20/19 04/20/19 Range/Units 19:56 08:13 08:13 RBC 2.81 L (3.80-5.40) m/uL Hgb 9.0 L (11.4-16.0) gm/dL Hct 27.7 L (34.0-46.0) % Plt Count 62 L (150-450) k/uL Potassium 3.3 L (3.5-5.1) mmol/L BUN <2 L (7-17) mg/dL Creatinine 0.37 L (0.52-1.04) mg/dL Glucose 113 H (74-99) mg/dL Magnesium 1.3 L (1.6-2.3) mg/dL Microbiology - Last 24 Hours (Table) 04/14/19 23:37 Blood Culture - Preliminary Blood No Growth after 120 hours Assessment and Plan (1) Prolonged QT interval Narrative/Plan: Electrolytes replaced with improvement in symptoms and cardiac rhythm. Telemetry monitoring. Echo performed, ejection fraction 60-65% Status: Acute Priority: High Code(s): R94.31 - ABNORMAL ELECTROCARDIOGRAM [ECG] [EKG] SNOMED Code(s): 073148122 (2) Pancytopenia due to antineoplastic chemotherapy Narrative/Plan: WBC/ANC recovered with use of G-CSF. Hemoglobin is 9, stable today. Patient's platelets are 62,000. No intervention needed. Status: Acute Priority: High Code(s): D61.810 - ANTINEOPLASTIC CHEMOTHERAPY INDUCED PANCYTOPENIA; T45.1X5A - ADVERSE EFFECT OF ANTINEOPLASTIC AND IMMUNOSUP DRUGS, INIT SNOMED Code(s): 262885851718967 (3) Mucositis (ulcerative) due to antineoplastic therapy Narrative/Plan: Patient will continue salt and soda rinses, diligent mouth care and cool solu tion when necessary Status: Resolved Priority: High Code(s): K12.31 - ORAL MUCOSITIS (ULCERATIVE) DUE TO ANTINEOPLASTIC THERAPY SNOMED Code(s): 790169092 (4) Hypokalemia Status: Resolved Priority: High Code(s): E87.6 - HYPOKALEMIA SNOMED Code(s): 23520406 (5) Lung cancer metastatic to bone Narrative/Plan: Patient is status post first treatment with carbo, Alimta, keytruda, bisphosphonate therapy for bone metastases. It was discussed with patient that we need to better manage side effects and she has to be willing to be aggressive about managing her self care. She verbalized understanding. Will discuss with Primary Oncologist if pt may need a dose reduction. We will be adding GCSF to her next cycle to treatment Pt will need to complete all abx and be recovered prior to resuming any therapy Status: Acute Priority: High Code(s): C34.90 - MALIGNANT NEOPLASM OF UNSP PART OF UNSP BRONCHUS OR LUNG; C79.51 - SECONDARY MALIGNANT NEOPLASM OF BONE SNOMED Code(s): 36943315 (6) Anorexia Narrative/Plan: As patient's symptoms are resolving, appetite is doing much better. Status: Acute Priority: High Code(s): R63.0 - ANOREXIA SNOMED Code(s): 23176666 (7) Intractable nausea and vomiting Status: Resolved Priority: High Code(s): R11.2 - NAUSEA WITH VOMITING, UNSPECIFIED SNOMED Code(s): 513301304 Plan: Clostridium difficile infection so, no recent to suspect, at this time, an immunotherapy-related side effect.
== END 2019-04-20 14:35 | disposition home health service (06) | DRG 871 ==
LOC: EC 17:43 → 3SCARD 04-15 00:12 → 2SICU 04-15 11:16 → 3NMEDONC 04-19 17:23
PROVIDERS: ADMIT Hospitalist; ATTEND Hospitalist
DX: A41.4 Sepsis due to anaerobes (principal); D61.810 Antineoplastic chemotherapy induced pancytopenia; A04.72 Enterocolitis due to Clostridium difficile, not specified as recurrent; C79.51 Secondary malignant neoplasm of bone; E87.1 Hypo-osmolality and hyponatremia; N39.0 Urinary tract infection, site not specified; C34.90 Malignant neoplasm of unspecified part of unspecified bronchus or lung; K56.7 Ileus, unspecified; D70.3 Neutropenia due to infection; E83.52 Hypercalcemia; E83.42 Hypomagnesemia; E86.0 Dehydration; I45.81 Long QT syndrome; L40.50 Arthropathic psoriasis, unspecified; K12.31 Oral mucositis (ulcerative) due to antineoplastic therapy; E87.6 Hypokalemia; E86.1 Hypovolemia; E03.9 Hypothyroidism, unspecified; I10 Essential (primary) hypertension; K21.9 Gastro-esophageal reflux disease without esophagitis; M54.30 Sciatica, unspecified side; F41.9 Anxiety disorder, unspecified; T45.1X5A Adverse effect of antineoplastic and immunosuppressive drugs, initial encounter; R50.81 Fever presenting with conditions classified elsewhere; M19.90 Unspecified osteoarthritis, unspecified site; F17.210 Nicotine dependence, cigarettes, uncomplicated; Z71.6 Tobacco abuse counseling; Z79.890 Hormone replacement therapy; Z79.891 Long term (current) use of opiate analgesic; Z79.899 Other long term (current) drug therapy; Z92.3 Personal history of irradiation; Z98.890 Other specified postprocedural states; Z82.49 Family history of ischemic heart disease and other diseases of the circulatory system
CPT/HCPCS: 36415; 70450; 71046; 74018; 74177; 80048; 80053; 81001; 81025; 82150; 83605; 83690; 83735; 84100; 84132; 85025; 85027; 87040; 87324; 87502; 93005; 93308; 96361; 96365; 96366; 96367; 96368; 96374; 96375; 99285